=== PATIENT | male | born 1930 | race Caucasian/White ===

== ENCOUNTER 2016-05-02 16:56 | Inpatient (IN) | payer MEDICARE, OTHER ==
[~2016-05-02] VITALS: Ht 172.7 cm; Wt 78.5 kg
[2016-05-02 18:38] LABS: BASOPHILS 0.2 % (0.0-2.0); HEMATOCRIT 25.2 % (42.0-54.0); LYMPHOCYTES 22.6 % (15-50); MCH 22.7 pg (26.0-34.0); MCHC 27.4 g/dL (31.0-37.0); MCV 82.9 fL (80.0-100.0); MEAN PLATELET VOLUME 10.2 fL (7.4-10.4); MONOCYTES 11.9 % (2-11); NEUTROPHILS 62.3 % (40-80); RBC 3.04 10x6/uL (4.20-6.10); RDW 18.4 % (11.5-14.5); WBC 6.3 10x3/uL (4.8-10.8)
[2016-05-02 19:05] LABS: HEMOGLOBIN 6.9 g/dL (13.5-17.5); PLATELET COUNT 174 10x3/uL (130-400)
[2016-05-02 19:19] LABS: ALBUMIN 3.3 g/dL (3.4-5.0); ALKALINE PHOSPHATASE 110 U/L (46-116); ALT (SGPT) 37 U/L (10-68); CALC OSMOLALITY 285 mosm/kg (275-300); CALCIUM 9.8 mg/dL (8.5-10.1); CARBON DIOXIDE 25.3 mmol/L (21.0-32.0); CHLORIDE - SERUM 104 mmol/L (98-107); CREATININE - SERUM 0.9 mg/dL (0.6-1.3); GLUCOSE 92 mg/dL (74-106); POTASSIUM - SERUM 3.8 mmol/L (3.5-5.1); PROTEIN - SERUM 6.5 g/dL (6.4-8.2); SODIUM 142 mmol/L (136-145); UREA NITROGEN 22 mg/dL (7-18); eGFR NON AFRICAN AMERICAN 85 mL/min (90-120)
--- NOTE | 2016-05-02 23:04 | NUR ---
REPORT CALLED FROM ER TO FLOOR.
[2016-05-03] VITALS (7 sets, daily range): BP systolic 114–146; BP diastolic 54–82; Ht 172.7 cm; Wt 78.5 kg
--- NOTE | 2016-05-03 00:28 | NUR ---
PT ADMITTED TO ROOM 2136 FROM ER. ACCOMPANIED BY SON. ALERT/ORIENTED. TRANSFERRED FROM STRETCHER TO BED. ADMISSION ASSESSMENT AND HISTORY COMPLETED. 16 FR SERRANO PLACED WITH YELLOW URINE OUTPUT. 20G IV TO LFA. STARTED 1ST UNIT OF BLOOD AT 0020. SON SIGNED CONSENT. VS BEING MONITORED.
--- NOTE | 2016-05-03 03:05 | NUR ---
1ST UNIT OF BLOOD CONTINUES TO INFUSE. SON AT BEDSIDE.
--- NOTE | 2016-05-03 07:41 | NUR ---
PT IN BED SLEEPING EASY TO ARROUSE SON AT BEDSISDE DENIES NEEDS WILL CONT TO MONITOR.
[2016-05-03 07:49] LABS: HEMATOCRIT 27.9 % (42.0-54.0); LYMPHOCYTES 27.8 % (15-50); MCH 25.3 pg (26.0-34.0); MCHC 30.5 g/dL (31.0-37.0); MEAN PLATELET VOLUME 10.5 fL (7.4-10.4); NEUTROPHILS 52.3 % (40-80); PLATELET COUNT 147 10x3/uL (130-400); RBC 3.36 10x6/uL (4.20-6.10); RDW 16.9 % (11.5-14.5)
[2016-05-03 08:01] LABS: HEMOGLOBIN 8.5 g/dL (13.5-17.5); WBC 4.6 10x3/uL (4.8-10.8)
[2016-05-03] MEDS ORDERED: NEUPRO1 EACH TOPICAL (10:13)
[2016-05-03] MEDS ORDERED: CIPRO500 MG PO (10:14)
[2016-05-03] MEDS ORDERED: SINEMET 25-1001 EACH PO (10:15)
[2016-05-03] MEDS ORDERED: ZOCOR20 MG (10:15)
[2016-05-03] MEDS ORDERED: MYSOLINE250 MG PO (10:16)
[2016-05-03] MEDS ORDERED: NIACIN500 MG PO (10:17)
[2016-05-03] MEDS ORDERED: ELOCON45 GM TOPICAL (10:17)
[2016-05-03] MEDS ORDERED: HYTRIN5 MG PO (10:18)
--- NOTE | 2016-05-03 12:32 | NUR ---
PT HAS BEEN SLEEPING MOST OF THE DAY. SON STILL AT BEDSIDE WILL CONT TO MONITOR.
[2016-05-03 13:57] LABS: APPEARANCE HAZY (CLEAR); BACTERIA FEW /hpf (NONE SEEN); BILIRUBIN NEGATIVE (NEGATIVE); COLOR YELLOW (YELLOW); EPITHELIAL CELLS 0-5 /hpf (0-5); GLUCOSE NEGATIVE (NEGATIVE); KETONE NEGATIVE (NEGATIVE); LEUKOCYTE ESTERASE TRACE (NEGATIVE); NITRITE NEGATIVE (NEGATIVE); PROTEIN 1+ mg/dL (NEGATIVE); RED CELLS - URINE 25-50 /hpf (0-5); SPECIFIC GRAVITY 1.015 (1.005-1.020); UROBILINOGEN NORMAL (NORMAL); WHITE CELLS - URINE 0-5 /hpf (0-5)
[2016-05-03 13:58] LABS: MUCUS <1+ /lpf (NONE SEEN)
--- NOTE | 2016-05-03 14:52 | NUR ---
CALLED PHARM TO GET MYSOLINE IN PYXIS.
[2016-05-03 15:13] LABS: % SATURATION 39 % (15-55); IRON 134 ug/dl (35-150); TOTAL IRON BIND CAPACITY 341 ug/dl (260-445); UNSAT IRON BIND CAPACITY 207 ug/dl (150-375)
--- NOTE | 2016-05-03 18:03 | NUR ---
PT SITTING UP IN BED WATCHING TV DAUGHTER AT BEDSIDE DENIES NEEDS WILL CONT TO MONITOR.
--- NOTE | 2016-05-03 21:20 | NUR ---
CONSENTS SIGNED BY PTS SON FOR EGD IN AM, UP WITH ASSIST TO BR. WILL CONT TO MONITOR.
[2016-05-04 00:52] VITALS: BP 188/53
--- NOTE | 2016-05-04 02:10 | NUR ---
LYING IN BED WITH EYES CLOSED, CALL LIGHT IN REACH. WILL CONTINUE WITH PLAN OF CARE.
[2016-05-04 05:04] VITALS: BP 184/56
[2016-05-04 05:59] LABS: BASOPHILS 0.2 % (0.0-2.0); EOSINOPHILS 7.9 % (0-7); HEMATOCRIT 30.3 % (42.0-54.0); HEMOGLOBIN 8.9 g/dL (13.5-17.5); LYMPHOCYTES 27.7 % (15-50); MCH 24.5 pg (26.0-34.0); MCHC 29.4 g/dL (31.0-37.0); MCV 83.5 fL (80.0-100.0); MEAN PLATELET VOLUME 10.4 fL (7.4-10.4); MONOCYTES 10.8 % (2-11); NEUTROPHILS 53.4 % (40-80); PLATELET COUNT 140 10x3/uL (130-400); RBC 3.63 10x6/uL (4.20-6.10); RDW 17.7 % (11.5-14.5); WBC 4.6 10x3/uL (4.8-10.8)
[2016-05-04 06:42] LABS: ALKALINE PHOSPHATASE 109 U/L (46-116); CALC OSMOLALITY 279 mosm/kg (275-300); CARBON DIOXIDE 27.4 mmol/L (21.0-32.0); CHLORIDE - SERUM 105 mmol/L (98-107); CREATININE - SERUM 0.9 mg/dL (0.6-1.3); GLUCOSE 95 mg/dL (74-106); MAGNESIUM - SERUM 1.8 mg/dL (1.8-2.4); PHOSPHOROUS 2.9 mg/dL (2.5-4.9); POTASSIUM - SERUM 3.8 mmol/L (3.5-5.1); PROTEIN - SERUM 5.9 g/dL (6.4-8.2); SODIUM 140 mmol/L (136-145); THYROID STIMULATING HORMONE 3.61 uIU/mL (0.36-3.74); UREA NITROGEN 15 mg/dL (7-18); eGFR NON AFRICAN AMERICAN 85 mL/min (90-120)
[2016-05-04 06:43] LABS: ALBUMIN 2.4 g/dL (3.4-5.0); ALT (SGPT) 13 U/L (10-68)
--- NOTE | 2016-05-04 07:15 | NUR ---
RESTING QUIETLY WITH EYES CLOSED RESP UNLABORED NAD NOTED
--- NOTE | 2016-05-04 07:30 | NUR ---
ASSESSMENT DONE. PT SLEEPING. EASILY AWAKEN. NO DISTRESS NOTD. DENIES NEEDS. SON AT BEDSIDE. CALL LIGHT WITH IN REACH. WILL CONT. TO MONITOR.
[2016-05-04 08:23] VITALS: BP 140/69
--- NOTE | 2016-05-04 10:33 | NUR ---
PT TO GI LAB BED. PRE OP MEDS GIVEN. EKG DONE. IV FLUSHED AND IS PATENT. PT DENIES PAIN AT SITE. PT'S SON IN ROOM.
--- NOTE | 2016-05-04 11:55 | CN ---
PATIENT NAME:ZACH MCKAY MEDICAL RECORD: [id number] : 32 LOCATION:D. D.2136 ADMIT DATE: 05/02/16 ACCOUNT: [id number] CONSULTING PHYSICIAN: DEEPA SMILEY MD REFERRING PHYSICIAN: REMA GRAY MD DATE OF CONSULTATION: 05/03/2016 Gastroenterology Consultation REFERRING PHYSICIAN: Rema Gray MD HISTORY OF PRESENT ILLNESS: The patient is an 85-year-old white male with history of Parkinson disease who is very hard of hearing, who basically was admitted with fairly significant constipation with no bowel movement over the past 6 days as well as anemia with hematocrit of 25 and an MCV of 83. The patient's only GI complaint is that of chronic constipation and problems with severe hemorrhoidal disease with prolapse. He has no history of melena or hematochezia other than prolapsed hemorrhoids. He apparently had a colonoscopy in [place] a few years back that revealed "a few polyps," they were removed. He was told that he might need a followup exam when he was 88, in 3 more years. He denies any abdominal pain or weight loss. I was asked to see the patient in this regard. PAST MEDICAL HISTORY: As above. He also has hyperlipidemia, tremors, and anxiety as well as coronary artery disease. He has also had multiple myeloma. PAST SURGICAL HISTORY: Status post PTCA. SOCIAL HISTORY: The patient quit smoking many years ago. He is a nondrinker. ALLERGIES: No known drug allergies. HOME MEDICATIONS: Include Neupro, Cipro, Zocor, Sinemet, Mysoline, niacin, Elocon, and Hytrin. He is not on any NSAIDs or blood thinners. PHYSICAL EXAMINATION: GENERAL: Reveals an elderly, very hard of hearing white male in no acute distress. VITAL SIGNS: Stable. He is afebrile. CHEST: Clear. HEART: Regular rate and rhythm. ABDOMEN: Soft and nontender. EXTREMITIES: No edema. LABORATORY DATA: Reveals a white count of 4000, hematocrit 27.9, MCV of 83, platelet count 147,000 with a normal differential. Retic count is normal at 1. Electrolytes normal. BUN 22, creatinine 0.9. Iron saturation 39%, ferritin levels borderline low at 11. Liver enzymes are unremarkable other than an AST of 71, albumin is 3.3. CT of the abdomen and pelvis reveals moderate constipation and a markedly dilated urinary bladder. This has been corrected with a Trent catheter. Acute abdominal series was unremarkable. IMPRESSION: 1. Normocytic anemia with normal borderline iron studies of unclear etiology, but suspectedly, it is partially due to hemorrhoidal bleeding. CONSULT REPORT [id number] ZACH MCKAY 2. Heme-positive stool. Also, probably due to his known large prolapsed internal hemorrhoids. 3. Chronic constipation. This is chronic probably related to his medications for Parkinson disease. 4. Extremely hard of hearing. 5. History of Parkinson disease. 6. Coronary artery disease. RECOMMENDATION: 1. MiraLax 17 g daily. 2. Mineral oil 10 cc daily. 3. Surgical evaluation for hemorrhoidal stapling. 4. EGD in a.m. 5. Depending on all of the above, consider outpatient colonoscopy. 6. Check B12, folate, and haptoglobin level as well as a TSH. TRANSINT:[id number] Voice Confirmation ID: [id number] DOCUMENT ID: [id number] DEEPA SMILEY MD at 1155 CC: REMA GRAY MD [id number] DICTATION DATE: 05/03/161941 CHIEF QUALITY OFFICER: 05/03/162029 ADM IN [facility] [address] [place] [address]
--- NOTE | 2016-05-04 13:34 | NUR ---
REPORT REC'D FROM TIESHA RN IN GI LAB. PT WITH NORMAL EGD. PER TIESHA, DR. SMILEY WOULD LIKE PT TO STAY UNTIL SEEN BY SURGERY D/T ANEMIA, BUT IF PT'S SON INSIST HE BE D/C'D THEN PT CAN GO AND SEE DR. ROSAS AN OUTPATIENT.
--- NOTE | 2016-05-04 14:14 | NUR ---
PT BACK FROM GI LAB. SON AND WAITER/WAITRESS HEAD ASSISTED PT TO RESTROOM. PT DENIES NEEDS AT THIS TIME. AWAITING DR. GRAY SEE PT AND DISCUSS DISCHARGE.
[2016-05-04 14:22] LABS: FOLATE (FOLIC ACID) - SERUM >20.0 ng/mL (>3.0)
[2016-05-04] MEDS ORDERED: MIRALAX17 GM PO (14:25)
[2016-05-04] MEDS ORDERED: MINERAL OIL25 ML PO (14:26)
--- NOTE | 2016-05-04 15:31 | NUR ---
PT TO BE DISCHARGED. AWAITING PAPERWORK. IV REMOVED, AND TELEMETRY REMOVED.
[2016-05-04] MEDS ORDERED: ZOCOR20 MG PO (15:34)
--- NOTE | 2016-05-04 15:46 | NUR ---
Patient Name: ZACH MAKI Admission Status: ER Accout number: [id number] Admission Date: 05-02-2016 : 1932 Admission Diagnosis:ANEMIA, UNSPECIFIED Attending: ISAAK Current LOS: 2 Anticipated DC Date: 05-05-2016 Planned Disposition: Primary Insurance: MEDICARE A & B Discharge Planning Comments: CM met with patient's son as patient is currently in GI Lab for EGD. Patient's son "Blayne Maki" ([phone]) states the patient and his spouse reside with him in his home. He lives in a single story home with 5 steps leading to the front door. He states he has placed guardrails and grab bars throughout the home for safety. Son states the patient has a walker but no other DME equipment. He has a shower with a built in seat. He states the patient is never left alone and when ambulating "always has at least one person to assist". No services were in use at time of this admission. The son states the home environment is safe for the patient to return to. The patient's son will be his transportation home when discharged and is currently at the bedside. CM to follow and assist as needed. Property Analyst: Yeny Forman RN/CM * How many steps to enter\\exit or inside your home? 5 0 * PCP Alexis 0 * Pharmacy [facility] ([place]) 0 * Preadmission Environment Home with Family 0 * ADLs Partial Dependent 0 * Partial ADLs (Assistance needed) Ambulation Bathing Dressing Medication Management Transfers 0 * Equipment Shower Chair Walker 0 * Other Equipment PATIENT'S SON STATES HE HAS INSTALLED GRAB BARS THROUGHOUT HIS HOME AND STATES HIS FATHER DOES NOT AMBULATE ALONE WITHOUT HIS WALKER AND ASSISTANCE BY AT LEAST 1 PERSON. 0 * List name and contact numbers for known caregivers / representatives who currently or will assist patient after discharge: Blayne Maki (son) [phone] or [phone] 0 * Community resources currently utilized None 0 * Additional services required to return to the preadmission environment? No 0 * Can the patient safely return to the preadmission environment? Yes 0 * Has this patient been hospitalized within the prior 30 days at any hospital? No 0
[2016-05-04 15:58] VITALS: BP 134/68
--- NOTE | 2016-05-04 16:04 | NUR ---
PT'S SERRANO REMOVED. PT ABLE TO VOID APPROX 120ML OF DARK YELLOW URINE. DISCHARGE INSTRUCTIONS GIVEN TO PT AND SON. SON VERBALIZED UNDERSTANDING. PT TO D/C HOME WITH [facility] CALLS FOLLOWING UP. TO D/C HOME VIA PRIVATE VEHICLE.
--- NOTE | 2016-05-04 16:21 | NUR ---
PT D/C HOME VIA PRIVATE VEHICLE.
--- NOTE | 2016-05-07 18:09 | PRO ---
PATIENT:ZACH MCKAY MEDICAL RECORD: [id number] : 32 LOCATION:D.M2 D.2136 ADMISSION DATE: 05/02/16 PROCEDURE PERFORMED BY: DEEPA BELLO MD DATE OF PROCEDURE: 05/04/2016 MEDICAL EQUIPMENT TECHNICIAN: Deepa Belol MD. PROCEDURE: EGD. INDICATION: The patient is an 85-year-old white male with Parkinson disease as well as he is very hard of hearing, who is basically admitted with significant anemia with normocytic indices and borderline iron studies of unclear etiology. His only GI complaint is as of chronic problems with internal hemorrhoids with persisted prolapse. He apparently had a colonoscopy in [place] a few years ago that revealed "a few polyps" and he was told not to have another one until 2019. He was heme positive on admission, his hematocrit was 25. He also has chronic constipation. I started him on MiraLax, mineral oil daily. He is now for EGD. His iron saturation is 30%. His ferritin level was borderline low at 12. B12, folate, haptoglobin are pending. TSH is normal. He is now for EGD. PREMEDICATION: Taper anesthesia. INSTRUMENT: Olympus video gastroscope. FINDINGS: The endoscope was passed through the oropharynx to the second portion of the duodenum without difficulty. The esophagus, stomach, and duodenum were all normal. There was no stigmata of recent bleeding. The patient tolerated the procedure well without any complication. IMPRESSION: 1. Normal esophagogastroduodenoscopy. 2. Anemia, still of unclear etiology, though I suspect most of it is due to his internal hemorrhoids with prolapse. RECOMMENDATIONS: 1. MiraLax 17 grams daily. 2. Mineral oil 10 cc daily. 3. Surgical evaluation for possible hemorrhoidal stapling. 4. Follow hematocrit. 5. Depending on all of the above, consider outpatient colonoscopy. Again, he apparently had a colonoscopy a few years ago in [place], but that was normal other than having "a few polyps" that removed. He was told to have a followup exam in 2019. TRANSINT:[id number] Voice Confirmation ID: [id number] DOCUMENT ID: [id number] PROCEDURE NOTE [id number] NELYDEEPA MEAD MD at 1805 CC: JARED QUEEN M.D. [id number] DICTATION DATE: 05/04/16 1238 AIRFRAME AND POWERPLANT TECHNICIAN: 05/05/16 0243 DIS IN 05/04/16 [facility] [address] [id number]
== END 2016-05-04 16:20 | disposition home or self-care (01) | DRG 812 ==
LOC: D.ER 16:56 → D.M2 22:21
PROVIDERS: Family Medicine; Internal Medicine Gastroenterology; Nurse Practitioner Acute Care; ADMIT Family Medicine
PROC: 0DJ08ZZ Inspection of Upper Intestinal Tract, Via Natural or Artificial Opening Endoscopic (ICD-10-PCS; principal; 2016-05-04 11:15)
DX: D64.9 Anemia, unspecified (principal); K64.8 Other hemorrhoids; K59.09 Other constipation; G20 Parkinson's disease; I25.10 Atherosclerotic heart disease of native coronary artery without angina pectoris; Z86.010 Personal history of colon polyps

== ENCOUNTER 2016-05-09 02:41 | Inpatient (IN) | payer MEDICARE, OTHER ==
[~2016-05-09] VITALS: Ht 172.7 cm; Wt 68.6 kg
[~2016-05-09 02:41] MED LIST: CIPRO500 MG PO; ELOCON45 GM TOPICAL; HYTRIN5 MG PO; MINERAL OIL25 ML PO; MIRALAX17 GM PO; MYSOLINE250 MG PO; NEUPRO1 EACH TOPICAL; NIACIN500 MG PO; SINEMET 25-1001 EACH PO; ZOCOR20 MG; ZOCOR20 MG PO
[2016-05-09 03:38] LABS: BASOPHILS 0.1 % (0.0-2.0); EOSINOPHILS 0.2 % (0-7); HEMATOCRIT 30.8 % (42.0-54.0); HEMOGLOBIN 8.9 g/dL (13.5-17.5); IMMATURE GRANULOCYTES 0.3 % (0-5); LYMPHOCYTES 7.9 % (15-50); MCHC 28.9 g/dL (31.0-37.0); MCV 86.5 fL (80.0-100.0); MEAN PLATELET VOLUME 9.9 fL (7.4-10.4); MONOCYTES 8.6 % (2-11); NEUTROPHILS 82.9 % (40-80); PLATELET COUNT 161 10x3/uL (130-400); RBC 3.56 10x6/uL (4.20-6.10); RDW 20.1 % (11.5-14.5); WBC 13.3 10x3/uL (4.8-10.8)
[2016-05-09 03:47] LABS: APPEARANCE HAZY (CLEAR); BACTERIA MANY /hpf (NONE SEEN); BILIRUBIN NEGATIVE (NEGATIVE); COLOR DK YELLOW (YELLOW); EPITHELIAL CELLS 0-5 /hpf (0-5); GLUCOSE NEGATIVE (NEGATIVE); KETONE SMALL mg/dL (NEGATIVE); LEUKOCYTE ESTERASE 1+ (NEGATIVE); MUCUS <1+ /lpf (NONE SEEN); NITRITE POSITIVE (NEGATIVE); PROTEIN NEGATIVE (NEGATIVE); RED CELLS - URINE RARE /hpf (0-5); SPECIFIC GRAVITY 1.015 (1.005-1.020); UROBILINOGEN NORMAL (NORMAL)
[2016-05-09 03:51] LABS: ALBUMIN 2.9 g/dL (3.4-5.0); ALKALINE PHOSPHATASE 109 U/L (46-116); ALT (SGPT) 12 U/L (10-68); BILIRUBIN - TOTAL 0.28 mg/dL (0.2-1.3); CALC OSMOLALITY 278 mosm/kg (275-300); CALCIUM 9.5 mg/dL (8.5-10.1); CARBON DIOXIDE 28.4 mmol/L (21.0-32.0); CHLORIDE - SERUM 102 mmol/L (98-107); CREATININE - SERUM 1.1 mg/dL (0.6-1.3); GLUCOSE 111 mg/dL (74-106); POTASSIUM - SERUM 4.6 mmol/L (3.5-5.1); PROTEIN - SERUM 6.9 g/dL (6.4-8.2); SODIUM 138 mmol/L (136-145); UREA NITROGEN 18 mg/dL (7-18); eGFR NON AFRICAN AMERICAN 68 mL/min (90-120)
[2016-05-09 03:59] LABS: CREATINE KINASE 65 UL (21-232); LIPASE 83 U/L (73-393); PRO BNP 227 pg/mL (0-450)
[2016-05-09 04:26] LABS: TROPONIN-I < 0.017 ng/mL (0.000-0.060)
[2016-05-09 06:31] VITALS: BP 115/54; BMI 23.7
--- NOTE | 2016-05-09 07:18 | NUR ---
PT ARRIVED TO UNIT FROM ER BY WHEELCHAIR SON AT SIDE RIGHT FOREARM SALINE LOCKED IVP INTACT. PT HAS TREMORS AND WHEN ASKED SON STATED THAT " HE HAS PARKENSONS" SON ASSISTING PT WITH USING URINAL AND PT IS UP WITH ASSIST RESPERATIONS EVEN AND UNLABORED ON 2LNC AT THIS TIME WILL MONITOR
--- NOTE | 2016-05-09 07:32 | NUR ---
AM ROUNDING- PT LAYING IN BED ON LEFT SIDE WITH EYES CLOSED RESTING. ON 2L OF VIA NC. IV SEEN TO RIGHT FOREARM THAT IS CURRENTLY SALINE LOCKED AND PATENT. PER REPORT FROM CAMPUS MONITOR NURSE JEROMY, PT USES URINAL AT BEDSIDE AND GETS UP WITH ASSIST. PER REPORT PT HAS HX OF PARKINSONS DISEASE. WILL PUT HEART MONITOR ON PT AND SCDS ORDERED AND CONTINUE TO MONITOR.
[2016-05-09 07:50] VITALS: BP 114/53
[2016-05-09 10:19] VITALS: Ht 172.7 cm; Wt 68.6 kg
[2016-05-09 11:59] VITALS: BP 133/62
--- NOTE | 2016-05-09 13:17 | NUR ---
JACQUELYN MÉNDEZ RN INSTERED SERRANO CATHETER ORDERED WITH 16F SERRANO CATHETER. 10CC OF SALINE INSERTED INTO BALLOON. TOLERATED WELL. URINE IS DARK/CONCENTRATED. WILL CONTINUE TO MONITOR.
[2016-05-09 16:44] VITALS: BP 138/57
--- NOTE | 2016-05-09 19:33 | NUR ---
RECEIVED REPORT, AUTUMN GILES, 02-2L, FAMILY AT BEDSIDE, CALL LIGHT IN REACH, BED IS LOW, [id number], WILL CONTINUE TO MONITOR
[2016-05-09 20:20] VITALS: BP 154/59
[2016-05-10] VITALS (7 sets, daily range): BP systolic 106–134; BP diastolic 43–73
--- NOTE | 2016-05-10 05:11 | NUR ---
PT RESTING, INFUSING ANTIBONICS, FAMILY AT BEDSIDE, CALL LIGHT IN REACH
[2016-05-10 05:26] LABS: BASOPHILS 0 % (0.0-2.0); EOSINOPHILS 0.1 % (0-7); HEMATOCRIT 29.5 % (42.0-54.0); HEMOGLOBIN 8.5 g/dL (13.5-17.5); IMMATURE GRANULOCYTES 0.3 % (0-5); LYMPHOCYTES 8.3 % (15-50); MCH 24.9 pg (26.0-34.0); MCHC 28.8 g/dL (31.0-37.0); MCV 86.3 fL (80.0-100.0); MEAN PLATELET VOLUME 10.5 fL (7.4-10.4); MONOCYTES 9.1 % (2-11); NEUTROPHILS 82.2 % (40-80); PLATELET COUNT 162 10x3/uL (130-400); RBC 3.42 10x6/uL (4.20-6.10); RDW 20.5 % (11.5-14.5); WBC 11.2 10x3/uL (4.8-10.8)
[2016-05-10 05:33] LABS: CALC OSMOLALITY 270 mosm/kg (275-300); CALCIUM 9.1 mg/dL (8.5-10.1); CARBON DIOXIDE 25.6 mmol/L (21.0-32.0); CHLORIDE - SERUM 102 mmol/L (98-107); GLUCOSE 90 mg/dL (74-106); POTASSIUM - SERUM 4.1 mmol/L (3.5-5.1); SODIUM 135 mmol/L (136-145); UREA NITROGEN 15 mg/dL (7-18); eGFR NON AFRICAN AMERICAN 76 mL/min (90-120)
--- NOTE | 2016-05-10 07:21 | NUR ---
PT SITTING UP IN BED WITH DAUGHTER AT BEDSIDE DENIES NEEDS WILL CONT TO MONITOR.
--- NOTE | 2016-05-10 13:59 | EC ---
PATIENT:ZACH MCKAY DATE OF SERVICE: 05/09/16 SEX: M MEDICAL RECORD: [id number] DATE OF : 32 LOCATION:D.M2 D.210 AGE OF PATIENT: 85 ADMISSION DATE: 05/09/16 REFERRING PHYSICIAN: INTERPRETING PHYSICIAN: ARGENTINA OSCAR MD ECHOCARDIOGRAM REPORT ECHO CHARGES 4 ECHO COMPLETE CLINICAL DIAGNOSIS: DYSPNEA ECHOCARDIOGRAPHIC MEASUREMENTS (adult normal given) AC root (d.<3.7cm) 4.1 LV Septum d (<1.2 cm> 1.3 Valve Excursion 2.0 LV Septum (systole) 1.4 Left Atria (s.<4.0cm> 3.5 LVPW d(<1.2cm) 1.2 RV (d.<2.3cm) 5.0 LVPW (sytole) 1.6 LV diastole(<5.6CM) 5.1 MV E-F(>70mm/sec) LV systole 3.8 LVOT Diameter 1.9 MV exc.(>10mm) 2.0 Est.ejection fraction (50-75%) Pericardial Effusion N DOPPLER: LVIT A 72.0 E 102 LA RVSP 40 LVOT 119 AOP1/2T Asc. Ao 147 RVOT 91 RA PA 142 AV Gradient Peak 8.7 AV Mean 3.9 AV Area 2.4 MV Gradient Peak 4.67 MV Mean 1.68 MV Area COMMENTS: Bruise Trimmer: Miko WILL Sas Developer Analyst:Miko Orlando TAPE# PACS DATE OF SERVICE: 05/10/2016 Echocardiogram FINDINGS: 1. Left ventricular chamber size is within normal limits. Left ventricular systolic function is normal. Overall ejection fraction estimated at 55%. 2. Left atrium, right atrium, and right ventricular chamber sizes are within normal limits. 3. Valvular structures have normal structure and motion. ECHOCARDIOGRAM REPORT [id number] ZACH MCKAY 4. Doppler interrogation only reveals mild mitral regurgitation, [id number] tricuspid regurgitation, no other valvular insufficiency or stenosis. Pulmonary systolic pressure is mildly elevated estimated at 40 mmHg. 5. No evidence of pericardial effusion or left ventricular thrombus. TRANSINT:[id number] Voice Confirmation ID: [id number] DOCUMENT ID: [id number] ARGENTINA OSCAR MD at 3500 CC: [id number] DICTATION DATE: 05/10/16 1245 CHANNEL MARKETING COORDINATOR: 05/10/16 1308 ADM IN [facility] [address] [id number]
--- NOTE | 2016-05-10 15:43 | NUR ---
Patient Name: ZACH MCKAY Admission Status: ER Accout number: [id number] Admission Date: 05-09-2016 : 1932 Admission Diagnosis:PNEUMONIA, UNSPECIFIED ORGANISM Attending: JOSY Current LOS: 1 Anticipated DC Date: Planned Disposition: Home Primary Insurance: MEDICARE A & B Discharge Planning Comments: * Is the patient Alert and Oriented? Yes 0 * How many steps to enter\exit or inside your home? 6 0 * PCP DR. QUEEN 0 * Pharmacy [facility] [address] [facility] 0 * Preadmission Environment Home with Family 0 * ADLs Partial Dependent 0 * Partial ADLs (Assistance needed) Bathing Medication Management Transfers 0 * Equipment Walker 0 * Other Equipment NO MEDICAL EQUIPMENT PROVIDER PREFERENCE 0 * List name and contact numbers for known caregivers / representatives who currently or will assist patient after discharge: TRINI MCKAY, SON, [place] [phone] 0 * Community resources currently utilized None 0 * Please name any agencies selected above. NONE 0 * Additional services required to return to the preadmission environment? No 0 * Can the patient safely return to the preadmission environment? Yes 0 * Has this patient been hospitalized within the prior 30 days at any hospital? Yes 0 CM MET WITH PT AND DAUGHTER IN ROOM TO DISCUSS DISCHARGE PLANNING AND NEEDS. PT IS EXTREMELY HARD OF HEARING AND WAS VERY SLOW TO RESPOND TO QUESTIONS, INDICATED TO CM TO SPEAK TO HIS DAUGHTER REGARDING QUESTIONS. PT'S DAUGHTER, MICHELET, REPORTS PT LIVING AT HOME DEPENDENT UPON PT'S SON WHO LIVES WITH PT. THEY ASSIST PT WITH TRANSFERS, AMBULATION, BATH AND MEDICATION. PT HAS A WALKER WITH NO MEDICAL EQUIPMENT PROVIDER PREFERENCE. PT HAS NO OUTSIDE SERVICES ASSISTING IN THE HOME. CM DISCUSSED AVAILABILITY OF HOME HEALTH, REHAB SERVICES AND MEDICAL EQUIPMENT. PT'S DAUGHTER DOES NOT THINK THEY WILL NEED ANYTHING BUT WILL LET CM KNOW IF THEY DO. CM LEFT CM CONTACT INFORMATION FOR FAMILY. DAUGHTER REPORTS HER BROTHER WILL PICK PT UP FOR DISCHARGE HOME. FAMILY PLANS TO TAKE PT HOME AT DISCHARGE. NO KNOWN DISCHARGE NEEDS AT THIS TIME, CM TO FOLLOW AND ASSIST IF NEEDED. Engineering Patternmaker: Laurent Henderson
--- NOTE | 2016-05-10 16:59 | NUR ---
PT PULLED PIV OUT BY ACCIDENT, PT FAMILY MEMBER THINKS LINE GOT CAUGHT ON BED RAIL. CATHETER TIP INTACT. PT SITTING UP EATING DINNER WILL RESITE WHEN HE IS FINISHED.
--- NOTE | 2016-05-10 18:23 | NUR ---
RESITED PT TO LEFT FA 22G X1 STICK.
--- NOTE | 2016-05-10 23:00 | NUR ---
PT ASSESSMENT COMPLETED NO DITRESS OBSERVED PT C/O SERRANO AND A " FEELING LIKE I NEED TO PEE" FLOEY DRAINING TO GRAVITY NO BLOCKAGE NOTED OR OBSERVED RESPERATIONS EVEN AND UNLABORED ON 2LNC BED LOW AND LOCKED SRX2 CALL LIGHT IN REACH WILL MONITOR
[2016-05-11 01:44] VITALS: BP 139/57
[2016-05-11 04:44] LABS: BASOPHILS 0.1 % (0.0-2.0); EOSINOPHILS 0.4 % (0-7); HEMATOCRIT 28.5 % (42.0-54.0); HEMOGLOBIN 8.4 g/dL (13.5-17.5); IMMATURE GRANULOCYTES 0.2 % (0-5); LYMPHOCYTES 8.8 % (15-50); MCH 25.2 pg (26.0-34.0); MCHC 29.5 g/dL (31.0-37.0); MCV 85.6 fL (80.0-100.0); NEUTROPHILS 81.5 % (40-80); PLATELET COUNT 158 10x3/uL (130-400); RBC 3.33 10x6/uL (4.20-6.10); RDW 20.2 % (11.5-14.5); WBC 11.1 10x3/uL (4.8-10.8)
[2016-05-11 05:22] LABS: CALC OSMOLALITY 266 mosm/kg (275-300); CARBON DIOXIDE 26.2 mmol/L (21.0-32.0); CHLORIDE - SERUM 101 mmol/L (98-107); CREATININE - SERUM 0.9 mg/dL (0.6-1.3); GLUCOSE 101 mg/dL (74-106); MAGNESIUM - SERUM 1.7 mg/dL (1.8-2.4); POTASSIUM - SERUM 4.4 mmol/L (3.5-5.1); SODIUM 133 mmol/L (136-145); UREA NITROGEN 14 mg/dL (7-18); eGFR NON AFRICAN AMERICAN 85 mL/min (90-120)
--- NOTE | 2016-05-11 07:11 | NUR ---
PT SITTING UP IN BED WITH SON AT BEDSIDE BOTH DENY NEEDS WILL CONT TO MONITOR.
[2016-05-11 08:00] VITALS: BP 114/52
[2016-05-11 12:00] VITALS: BP 122/50
--- NOTE | 2016-05-11 12:40 | CN ---
PATIENT NAME:ZACH MAKI MEDICAL RECORD: [id number] : 32 LOCATION:D.M2 D.2104 ADMIT DATE: 05/09/16 ACCOUNT: [id number] CONSULTING PHYSICIAN: RANDY DIKCSON MD REFERRING PHYSICIAN: JENNI OBRIEN MD DATE OF CONSULTATION: 05/09/2016 CONSULT REQUESTING PHYSICIAN: Jenni Obrien MD. REASON FOR CONSULTATION: Questionable pneumonia, acute hypoxic respiratory failure. HISTORY OF PRESENT ILLNESS: Mr. Maki is an 85-year-old gentleman who has a history of Parkinson disease and very hard of hearing. The history was taken by the help his son. The patient was recently hospitalized for anemia. He was transfused with 2 units of blood, discharged home and then for the last 3-4 days he was progressive shortness of breath and swelling of the lower extremity. He came back to the ER, in evaluation found out that the patient has significant leukocytosis, but the chest x-ray there were no infiltrate. REVIEW OF SYSTEMS: Mainly in the history of present illness. PAST MEDICAL HISTORY: 1. Parkinson disease. 2. History of pneumonia. 3. Recent anemia. 4. History of multiple myeloma. PAST SURGICAL HISTORY: He is status post EGD. ALLERGIES: There are no known drug allergies. PRESENT MEDICATIONS: On Global Education Learning was reviewed. PERSONAL AND SOCIAL HISTORY: The patient was smoking and nondrinker. FAMILY HISTORY: Noncontributory. PHYSICAL EXAMINATION: GENERAL: Now, the patient is lying comfortably. He is not in acute distress. VITAL SIGNS: The blood pressure 133/62, pulse is 75, respiration is 98.4, SpO2 is 95% on 2 liters nasal cannula. HEENT: Conjunctiva is pale. Sclerae nonicteric. NECK: Supple, no JVD. CHEST: Excursion is minimal on both sides. There is no wheeze, no rales. HEART: Rhythm regular, normal sound, no murmur. ABDOMEN: Soft, bowel sounds present. No hepatosplenomegaly. RECTAL: Deferred. EXTREMITIES: No cyanosis, no clubbing. There are 2+ pedal edema. SKIN: Warm, normal turgor. CENTRAL NERVOUS SYSTEM: There is no obvious cranial nerve abnormality. The patient has increased muscle tone. The gait was not tested. CHEST RADIOGRAPH: There is no acute infiltrate. CONSULT REPORT [id number] ZACH MAKI OTHER LABORATORY DATA: CBC: WBC is 13.3, hemoglobin 8.9, hematocrit 30.8. The platelet count 161. Chemistry: Sodium 138, potassium is 4.6, BUN is 18, creatinine 1.1, glucose 111. IMPRESSION: 1. Acute hypoxic respiratory failure. The etiology is not clear, rule out occult pneumonia, possible aspiration, rule out pulmonary embolism. 2. Leukocytosis. 3. Urinary tract infection. 4. Anemia. 5. Parkinson disease. RECOMMENDATION: 1. We will continue the present antibiotic, cefepime and Levaquin adjust the dosage. I will check the CTA of the chest to rule out PE, rule out pneumonia. 2. The speech pathologist evaluation is in progress. Dr. Obrien, once again thanks for involving me in the care of Mr. Maki. TRANSINT:[id number] Voice Confirmation ID: [id number] DOCUMENT ID: [id number] RANDY DICKSON MD at 1240 CC: JENNI OBRIEN MD [id number] DICTATION DATE: 05/09/16 1514 ALUMNI COORDINATOR: 05/09/16 1602 ADM IN [facility] [address] [id number]
--- NOTE | 2016-05-11 13:12 | NUR ---
PT HAD A LARGE INC BM AFTER LUNCH. CLEANED UP PT. PT DENIES OTHER NEEDS AT THIS TIME WILL CONT TO MONITOR
--- NOTE | 2016-05-11 14:02 | NUR ---
PT TEMP 100.0. GIVEN TYLENOL
--- NOTE | 2016-05-11 14:09 | NUR ---
NUTRITION MONITORING & EVAL CHART REVIEWED, PT VISIT. SLEEPING, FAMILY AT BEDSIDE. NOT DRINKING MUCH ENSURE. FAMILY REPORTS PT WITH POOR PO INTAKE BREAKFAST AND LUNCH MOST DAYS. PT DOES CONSUME ~100% EVENING MEALS. WILL CONTINUE TO PROVIDE AHA DIET, HONEY THICK LIQUIDS. RD FOLLOWING
[2016-05-11 16:00] VITALS: BP 104/53
--- NOTE | 2016-05-11 18:29 | NUR ---
PT SITTING UP IN BED SLEEPING NO S/S DISTRESS NOTED WILL CONT TO MONITOR.
[2016-05-11 20:24] VITALS: BP 140/61
--- NOTE | 2016-05-11 21:31 | NUR ---
RESTING IN BED. ALERT FOLLOWS WITH EYES. DID NOT RESPOND VERBALLY WHEN QUESTIONED. ATTEMPTED TO SHAKE HEAD YES AND NO WHEN ABLE AND APPROPRIATE. DAUGHTER AT BEDSIDE
[2016-05-12 01:07] VITALS: BP 171/71
[2016-05-12 05:01] VITALS: BP 149/64
[2016-05-12 05:33] LABS: BASOPHILS 0.1 % (0.0-2.0); EOSINOPHILS 1.7 % (0-7); HEMATOCRIT 29.1 % (42.0-54.0); HEMOGLOBIN 8.6 g/dL (13.5-17.5); IMMATURE GRANULOCYTES 0.3 % (0-5); LYMPHOCYTES 9.4 % (15-50); MCH 24.9 pg (26.0-34.0); MCHC 29.6 g/dL (31.0-37.0); MCV 84.1 fL (80.0-100.0); MEAN PLATELET VOLUME 10.5 fL (7.4-10.4); MONOCYTES 9.2 % (2-11); NEUTROPHILS 79.3 % (40-80); RBC 3.46 10x6/uL (4.20-6.10); RDW 20.1 % (11.5-14.5); WBC 10.8 10x3/uL (4.8-10.8)
[2016-05-12 05:37] LABS: PLATELET COUNT 202 10x3/uL (130-400)
[2016-05-12 05:55] LABS: CALC OSMOLALITY 263 mosm/kg (275-300); CALCIUM 8.9 mg/dL (8.5-10.1); CARBON DIOXIDE 24.3 mmol/L (21.0-32.0); CHLORIDE - SERUM 100 mmol/L (98-107); CREATININE - SERUM 0.7 mg/dL (0.6-1.3); GLUCOSE 91 mg/dL (74-106); MAGNESIUM - SERUM 1.7 mg/dL (1.8-2.4); PHOSPHOROUS 2.4 mg/dL (2.5-4.9); POTASSIUM - SERUM 4.1 mmol/L (3.5-5.1); SODIUM 132 mmol/L (136-145); UREA NITROGEN 11 mg/dL (7-18); eGFR NON AFRICAN AMERICAN > 90 mL/min (90-120)
[2016-05-12 07:00] VITALS: BP 136/59
--- NOTE | 2016-05-12 07:21 | NUR ---
AM ROUNDING- PT LAYING IN BED ON BACK WITH EYES OPEN RESTING. SON AT BEDSIDE. SERRANO CATHETER SEEN WITH NO URINE IN IT CURRENTLY. IV SEEN TO LEFT FOREARM WITH NS RUNNING AT KVO (10CC). ON ROOM AIR. ON MONITOR SHOWING SR, HR 79. SCDS ARE ON. PER REPORT PT HAS HX OF PARKINSONS DISEASE. WALKER AT BEDSIDE. BEDSIDE COMMODE AT BEDSIDE. NO NEED AT CURRENT TIME. WILL CONTINUE TO MONITOR.
--- NOTE | 2016-05-12 09:00 | NUR ---
0806-CALLED TO CHECK ON PATIENT FROM PIN BALL MACHINE MECHANIC. PATIENT WAS IN SR THIS AM AND NOW UCAF, HR 133. B/P 128/666 RT [facility], O2 SAT 95 % RA, RESP 20. DENIES ANY CHEST PAIN OR DISCOMFORT. JOHNSON QUIROZ APN PAGED. AWAITING CALL BACK.
--- NOTE | 2016-05-12 09:25 | NUR ---
CHECK WHAT PT WAS DOING ON THE MONITOR. PT IS GOING BACK AND FORTH BETWEEN SINUS RHYTHM AND UNCONTROLLED A-FIB. PT DENIES ANY CHEST PAIN AT THIS TIME. STILL AWAITING CALLBACK FROM JOHNSON QUIROZ NP. WILL CONTINUE TO MONITOR. DAUGHTER IS AT BEDSIDE AND STATED SHE WILL NOTIFY ME IF PT HAS ANY ABNORMAL SYMPTOMS.
--- NOTE | 2016-05-12 11:52 | NUR ---
1115- DR. OBRIEN ON UNIT. NOTIFIED HER OF PTS HEART RHYTHM GOING FROM SINUS RHYTHM TO UNCONTROLLED A-FIB AT TIMES. NO NEW ORDERS RECEIVED.
[2016-05-12 12:00] VITALS: BP 113/47
[2016-05-12 16:00] VITALS: BP 125/64
--- NOTE | 2016-05-12 18:01 | NUR ---
PT LAYING IN BED ON BACK WITH EYES CLOSED RESTING. DAUGHTER IS AT BEDSIDE. NO NEED AT CURRENT TIME. SERRANO CATHETER EMPTIED WITH 1200CC OF SLIGHTLY DARK URINE SEEN. WILL CONTINUE TO MONITOR.
[2016-05-12 20:15] VITALS: BP 121/54
--- NOTE | 2016-05-12 22:05 | NUR ---
RESTING IN BED. EYES CLOSED RESPIRATIONS OBSERVED. EVEN AND UNLABORED. FAMILY AT BEDSIDE
[2016-05-13 00:09] VITALS: BP 122/60
[2016-05-13 04:12] VITALS: BP 130/64
--- NOTE | 2016-05-13 05:00 | NUR ---
PT HAS RESTED WITH NO DISTRESS. HAT FORMER PROVIDING AM CARE ASSISTANCE.
[2016-05-13 05:03] LABS: BASOPHILS 0.2 % (0.0-2.0); EOSINOPHILS 7.6 % (0-7); HEMATOCRIT 30.8 % (42.0-54.0); IMMATURE GRANULOCYTES 0.3 % (0-5); LYMPHOCYTES 15.8 % (15-50); MCH 24.7 pg (26.0-34.0); MCHC 29.2 g/dL (31.0-37.0); MCV 84.4 fL (80.0-100.0); MEAN PLATELET VOLUME 10.5 fL (7.4-10.4); MONOCYTES 10.3 % (2-11); NEUTROPHILS 65.8 % (40-80); RBC 3.65 10x6/uL (4.20-6.10); RDW 20.1 % (11.5-14.5)
[2016-05-13 05:08] LABS: PLATELET COUNT 243 10x3/uL (130-400); WBC 6.6 10x3/uL (4.8-10.8)
[2016-05-13 05:21] LABS: CALC OSMOLALITY 277 mosm/kg (275-300); CALCIUM 9.3 mg/dL (8.5-10.1); CARBON DIOXIDE 26.1 mmol/L (21.0-32.0); CHLORIDE - SERUM 104 mmol/L (98-107); CREATININE - SERUM 0.7 mg/dL (0.6-1.3); GLUCOSE 96 mg/dL (74-106); POTASSIUM - SERUM 4.1 mmol/L (3.5-5.1); SODIUM 139 mmol/L (136-145); UREA NITROGEN 12 mg/dL (7-18); eGFR NON AFRICAN AMERICAN > 90 mL/min (90-120)
--- NOTE | 2016-05-13 07:04 | NUR ---
AM ROUNDING- PT LAYING IN BED ON LEFT SIDE WITH EYES CLOSED RESTING. ON MONITOR SHOWING SR, HR 70. PT HAS SERRANO CATHETER WITH YELLOW URINE SEEN. ON ROOM AIR. IV SEEN TO LEFT FOREARM THAT CURRENTLY HAS ANTIBIOTICS RUNNING. SCDS ARE ON. BED ALARM IS ON. PT HAS HX OF PARKINSONS DISEASE PER REPORT. NO NEED AT CURRENT TIME. WILL CONTINUE TO MONITOR.
[2016-05-13 09:00] VITALS: BP 138/64
--- NOTE | 2016-05-13 10:54 | NUR ---
1037- DR. OBRIEN ON UNIT. NOTIFIED HER OF PT NOT GETTING STARTED ON HOME MEDICATION D/T TO REALIZING PT HAD NOT BEEN TAKING PARKINSONS MEDICATION AND FAMILY WAS WONDERING ABOUT IT WELL BUT WASN'T SURE IF PT WAS TAKING HOME MEDICATIONS. I LOOKED AND HOME MEDICATION LIST HAD BEEN UPDATED ON ADMISSION BUT DID NOT SEE MEDICAIONS ON PTS MAR. I WAS CONCERNED ABOUT PT SHAKING ALOT ( PT HAS HX OF PARKINSONS DISEASE). DR. OBRIEN STATED SHE WOULD LOOK INTO IT. AWAITING NEW ORDERS.
[2016-05-13 12:00] VITALS: BP 136/68
--- NOTE | 2016-05-13 12:39 | NUR ---
PTS HOME MEDICATIONS ARE AT BEDSIDE TABLE. INFORMED PTS DAUGHTER THAT WE WOULD HAVE TO SEND THEM DOWN TO PHARMACY AND HAVE THEM KEPT DOWN THERE OR PTS DAUGHTER COULD TAKE THEM HOME. PT DAUGHTER STATED SHE WOULD TAKE THEM HOME. WILL CONTINUE TO MONITOR.
[2016-05-13] MEDS ORDERED: VIBRAMYCIN 100100 MG PO (13:41)
--- NOTE | 2016-05-13 14:59 | NUR ---
PER J CARLOS RN REQUEST, PAGED DR. DICKSON TO INFORM HIM THAT PT IS TO D/C HOME TODAY. PAGED DR. DICKSON TO ALSO ASK HIM IF HE WANTED TO DO A FOLLOW UP APPOINTMENT WITH ANY TESTING. AWAITING CALLBACK.
[2016-05-13 16:00] VITALS: BP 125/68
--- NOTE | 2016-05-13 17:00 | NUR ---
PTS SON IS IN ROOM UPSET BECAUSE HE STATED HE DOES NOT KNOW WHY PTS HOME MEDICATIONS JUST GOT STARTED BACK TODAY. I TOLD PTS SON THAT I AM VERY SORRY. I LET CHARGE NURSE DAVID KNOW AND NOTIFIED RUBIO BUSBYCUPOLA WORKER. I GAVE PTS SON SHAMIKA CRISTOBAL RN (UNIT MANGER) PHONE NUMBER.
--- NOTE | 2016-05-13 17:03 | NUR ---
PTS D/C PAPERWORK EXPLAINED TO PT AND PTS SON AND DAUGHTER. D/C PAPERWORK SIGNED BY PTS SON. IV TO LEFT FOREARM REMOVED WITH CATH TIP INTACT, COVERED WITH 2X2 GAUZE AND SECURED WITH TAPE. SERRANO CATHETER REMOVED WITH 10CC PULLED OUT OF BALLOON. TOLERATED WELL. AWAITING PTS SON AND DAUGHTER TO GET PTS BELONGINGS TOGETHER AND WILL CONTINUE TO D/C.
--- NOTE | 2016-05-13 17:24 | NUR ---
LIBIA WENT TO SPEAK WITH THE PATIENT AT THE BEDSIDE. HIS SON, TRINI , WAS ASSISTING HIM TO GET DRESSED FOR DISCHARGE TO HOME. THE SON DENIED ANY ADDITIONAL NEEDS FOR DISCHARGE. PATIENT HAS HOUSE CALL ORDERED FOR FOLLOWUP. TRINI STATES A "GIRL" NAMED FDAI WAS SCHEDULED TO COME JUST BEFORE THE PATIENT'S READMISSION. THE patient had a house call referral his last admission. Trini stated he would call Fadi to let her know the patient had returned to home.
--- NOTE | 2016-05-13 17:41 | NUR ---
PT D/C VIA WHEELCHAIR.
[2016-05-14 09:09] LABS: ERYTHROPOIETIN 49.1 mIU/mL (2.6-18.5)
--- NOTE | 2016-05-14 09:15 | DS ---
PATIENT:ZACH MCKAY :34 MEDICAL RECORD: [id number] DISCHARGE SUMMARY ADMISSION DATE: 05/09/16 DISCHARGE DATE: 05/13/16 DATE OF ADMISSION: 05/09/2016 DATE OF DISCHARGE: 05/13/2016 ADMITTING DIAGNOSES: Healthcare-acquired pneumonia, anemia of unknown etiology, leukocytosis, weakness, dyspnea, urinary tract infection, constipation, functional quadriplegia, Parkinson's. HOSPITAL COURSE: This is a very nice 85-year-old white male, patient of Dr. Alexis, admitted with diagnoses as outlined above. Details are well-outlined in the history of the present illness, H&P. All events, lab procedures, diagnostic testing are well documented in the records. The patient was admitted, appropriate home medicines continued. He was started on IV antibiotics. Bowel regimen established. Speech therapy consulted. Renal ultrasound obtained and Trent catheter placed. Renal ultrasound showed no evidence of hydro. CONSULTANTS: Dr. Marks, pulmonary. His recommendations were followed. Dr. Holloway, hematology-oncology. Her recommendations were followed. Echocardiogram obtained, read by Dr. Cortez. EF 55%, mild mitral regurg, no PE or left ventricular thrombus. Labs and volume were closely followed. Bedside swallow evaluation showed no clinical signs and symptoms of aspiration. He started having bowel movements, bowel regimen continued. He did have some lower extremity edema. We did Doppler his legs, it was negative for DVT. Hemoglobin maintained at 8.4-9.0. Dr. Holloway felt he had anemia of chronic disease. Physical therapy was consulted, they work with strengthening him. He did have one episode of going into atrial fibrillation, but went back into sinus and he stayed in a sinus rhythm. He is felt stable for dismissal home today. He is going to go home on antibiotics. We do have a urine that is growing a Gram-negative thom and we are sending him on doxycycline to cover the healthcare-acquired pneumonia and Gram-negative thom urinary tract infection. DISCHARGE DIAGNOSES: Healthcare-associated pneumonia, anemia of chronic disease, leukocytosis, weakness, shortness of breath, urinary tract infection with Gram-negative rods, constipation, functional quadriplegia, Parkinson disease. Greater than 30 minutes was spent on this discharge. Please refer to med rec. TRANSINT:[id number] Voice Confirmation ID: [id number] DOCUMENT ID: [id number] Dictated By: JOHNSON HANIG RN I have interviewed/examined the above patient and agree with these documented findings. DISCHARGE SUMMARY REPORT [id number] ZACH MCKAY AMY MD at 0915 at 1612 CC: [id number] DICTATION DATE: 05/13/16 1348 MACHINE INSTALLER: 05/13/16 1414 DIS IN 05/13/16 [id number] [place] [address]
[2016-05-14 17:10] LABS: SPE - A/G RATIO 0.8 (0.7-1.7); SPE - ALBUMIN 2.4 g/dL (2.9-4.4); SPE - ALPHA-1 GLOBULIN 0.4 g/dL (0.0-0.4); SPE - ALPHA-2 GLOBULIN 0.9 g/dL (0.4-1.0); SPE - GAMMA GLOBULIN 0.8 g/dL (0.4-1.8); SPE - M-SPIKE Not Observed g/dL (Not Observed); SPE - TOTAL PROTEIN 5.5 g/dL (6.0-8.5)
== END 2016-05-13 18:13 | disposition home or self-care (01) | DRG 193 ==
LOC: D.ER 02:41 → D.M2 04:50
PROVIDERS: Emergency Medicine; Internal Medicine Hematology & Oncology; ADMIT Emergency Medicine
PROC: 0T9B70Z Drainage of Bladder with Drainage Device, Via Natural or Artificial Opening (ICD-10-PCS; principal; 2016-05-09)
DX: J18.9 Pneumonia, unspecified organism (principal); J96.01 Acute respiratory failure with hypoxia; R53.2 Functional quadriplegia; N39.0 Urinary tract infection, site not specified; J98.11 Atelectasis; R53.1 Weakness; K59.00 Constipation, unspecified; D64.9 Anemia, unspecified; G20 Parkinson's disease; I34.0 Nonrheumatic mitral (valve) insufficiency; Z85.79 Personal history of other malignant neoplasms of lymphoid, hematopoietic and related tissues

== ENCOUNTER → 2016-06-01 13:52 | Outpatient (CLI) | payer MEDICARE, OTHER ==
[2016-05-09 10:19] VITALS: BMI 23.7
[~2016-06-01 13:52] MED LIST changes: +VIBRAMYCIN 100100 MG PO
== END | disposition home or self-care (01) ==
LOC: D.LABREF 13:52
DX: N39.0 Urinary tract infection, site not specified (principal)

== ENCOUNTER → 2016-06-26 17:05 | Outpatient (CLI) | payer MEDICARE, OTHER ==
[2016-05-09 10:19] VITALS: BMI 23.7
== END | disposition home or self-care (01) ==
LOC: D.LABREF 17:05
DX: N39.0 Urinary tract infection, site not specified (principal)

== ENCOUNTER → 2016-07-16 20:14 | Outpatient (CLI) | payer MEDICARE, OTHER ==
[2016-05-09 10:19] VITALS: BMI 23.7
== END | disposition home or self-care (01) ==
LOC: D.LABREF 20:14
DX: R30.0 Dysuria (principal)

== ENCOUNTER → 2016-07-30 19:25 | Outpatient (CLI) | payer MEDICARE, OTHER ==
[2016-05-09 10:19] VITALS: BMI 23.7
== END | disposition home or self-care (01) ==
LOC: D.LABREF 19:25
DX: R33.9 Retention of urine, unspecified (principal)

== ENCOUNTER → 2016-11-27 18:03 | Outpatient (CLI) | payer MEDICARE, OTHER ==
[2016-05-09 10:19] VITALS: BMI 23.7
[2016-11-27 21:40] LABS: APPEARANCE CLEAR (CLEAR); BILIRUBIN NEGATIVE (NEGATIVE); COLOR YELLOW (YELLOW); GLUCOSE NEGATIVE (NEGATIVE); KETONE NEGATIVE (NEGATIVE); LEUKOCYTE ESTERASE TRACE (NEGATIVE); NITRITE NEGATIVE (NEGATIVE); PROTEIN NEGATIVE (NEGATIVE); UROBILINOGEN NORMAL (NORMAL)
[2016-11-27 21:41] LABS: BACTERIA MANY /hpf (NONE SEEN); WHITE CELLS - URINE 0-5 /hpf (0-5)
== END | disposition home or self-care (01) ==
LOC: D.LABREF 18:03
PROVIDERS: Urology
DX: N39.0 Urinary tract infection, site not specified (principal)

== ENCOUNTER 2018-05-07 18:27 | Inpatient (IN) | payer MEDICARE, OTHER ==
[~2018-05-07] VITALS: Ht 172.7 cm; Wt 80.6 kg
[2018-05-07] MEDS ORDERED: FISH OIL 1,0001 CA1 PO (18:33)
[2018-05-07] MEDS ORDERED: LOW DOSE ASPIRI81 M1 PO (18:34)
[2018-05-07] MEDS ORDERED: HYTRIN1 MG PO (18:35)
[2018-05-07 19:30] LABS: BASOPHILS 0.4 % (0-2); EOSINOPHILS 5.5 % (0-7); IMMATURE GRANULOCYTES 0.3 % (0-5); LYMPHOCYTES 18.7 % (15-50); MCHC 25.8 g/dL (31.0-37.0); MCV 71.7 fL (80.0-100.0); MEAN PLATELET VOLUME 9.6 fL (7.4-10.4); MONOCYTES 10.7 % (2-11); NEUTROPHILS 64.4 % (40-80); PLATELET COUNT 286 10x3/uL (130-400); RBC 2.54 10x6/uL (4.20-6.10); RDW 20.2 % (11.5-14.5); WBC 6.9 10x3/uL (4.8-10.8)
[2018-05-07 19:34] LABS: INR 1.23 (0.85-1.17); PROTIME 14.9 SECONDS (11.6-15.0)
[2018-05-07 19:37] LABS: HEMATOCRIT 18.2 % (42.0-54.0); HEMOGLOBIN 4.7 g/dL (13.5-17.5); MCH 18.5 pg (26.0-34.0)
[2018-05-07 19:52] LABS: ALBUMIN 2.6 g/dL (3.4-5.0); ALKALINE PHOSPHATASE 152 U/L (46-116); ALT (SGPT) 11 U/L (10-68); BILIRUBIN - TOTAL 0.15 mg/dL (0.2-1.3); CALC OSMOLALITY 278 mosm/kg (275-300); CARBON DIOXIDE 24.5 mmol/L (21.0-32.0); CHLORIDE - SERUM 104 mmol/L (98-107); CREATININE - SERUM 0.7 mg/dL (0.6-1.3); GLUCOSE 82 mg/dL (74-106); POTASSIUM - SERUM 4.5 mmol/L (3.5-5.1); PROTEIN - SERUM 5.8 g/dL (6.4-8.2); SODIUM 139 mmol/L (136-145); UREA NITROGEN 19 mg/dL (7-18); eGFR NON AFRICAN AMERICAN > 90 mL/min (90-120)
--- NOTE | 2018-05-07 20:07 | NUR ---
FIRST UNIT OF BLOOD STARTED.
--- NOTE | 2018-05-07 20:11 | NUR ---
SECOND UNIT OF BLOOD STARTED.
[2018-05-07 22:00] VITALS: BP 159/69
--- NOTE | 2018-05-07 22:00 | NUR ---
PT ADMIT VIA ER STAFF. HE IS A&O X4 AND IS SHOWING SIGNS OF PAIN IN HIS ABD WHEN HE COUGHS. MOVED PT OVER TO ICU BED AND CONNECTED HIM TO ALL MONITORS. TIGHT PARAMETERS SET. PERRLA, 3 MM, BRISK REACTION TO LIGHT. CAPPED TEETH NOTED, ORAL MUCOSA MOIST. PT IS ON RA, RR EVEN AND UNLABORED, O2 SAT 99%, CLEAR LUNG SOUNDS THROUGHOUT ALL LOBES. S1S2 AUDIBLE, HR 70 BPM, NSR SHOWING ON MONITOR. ABD IS ROUND AND SOFT, BS ACTIVE X4. RADIAL AND PEDAL PULSES PALP. UPPER EXT HAS GENERALIZED BRUISING, SCABS/SORES. GENERALIZED MOLES NOTED ON HIS BACK. URINE IS CLEAR YELLOW, COLLECTED IN URINAL. PIV R AC INFUSING PROTONIX GTT, L FA PIV INFUSING NS. ALL NEEDS MET. WILL CONT TO MONITOR CLOSELY.
[2018-05-07 22:02] VITALS: BP 127/76; BMI 26.5
--- NOTE | 2018-05-07 22:30 | NUR ---
DR. QUEEN AT BEDSIDE. NEW ORDERS RECIEVED. INFORMED HIM THAT 2 UN PRBC'S HAVE BEEN INFUSED[address]. QUEEN ORDERED 2 MORE UNITS OF PRBC'S WITH 20 MG LASIX IVP BETWEEN EVERY TWO UNITS. SERIAL H&H ORDERED, CONT PROTONIX GTT, ECHO TO RULE OUT CHF. PARAMETERS: NURSE TO XFUSE 2 UN PRBCS IF HGB < 8. WILL WRITE NURSING MESSAGE. DR. QUEEN REVIEWING HOME MEDS, START NEXT DOSE IN AM.
--- NOTE | 2018-05-07 22:36 | NUR ---
H&H REVIEWED. HGB TRENDING UP.
[2018-05-07 22:56] LABS: HEMOGLOBIN 6.9 g/dL (13.5-17.5)
[2018-05-07 23:00] VITALS: BP 155/68
--- NOTE | 2018-05-07 23:45 | NUR ---
3RD UNIT OF PRBC'S INFUSING.
[2018-05-08] VITALS (25 sets, daily range): BP systolic 120–167; BP diastolic 52–73; Ht 172.7 cm; Wt 80.6 kg
--- NOTE | 2018-05-08 00:30 | NUR ---
DR. THAPA NOTIFIED OF CONSULT. NO NEW ORDERS.
--- NOTE | 2018-05-08 01:00 | NUR ---
PT RESTING PEACEFULLY. NO S/S OF XFUSION REACTION NOTED. WILL CONT WITH POC.
--- NOTE | 2018-05-08 03:00 | NUR ---
REASSESSMENT COMPLETE. PT LYING IN BED WITH NO S/S OF PAIN OR DISCOMFORT. VSS. SEE FLOWSHEET FOR FURTHER DETIALS. CALL LIGHT IN REACH, BED IN LOWEST POSITION, BED ALARM ON. WILL CONT WITH POC.
--- NOTE | 2018-05-08 03:10 | NUR ---
FOURTH UNIT OF PRBC'S INFUSING.
[2018-05-08 03:12] LABS: BASOPHILS 0.3 % (0-2); EOSINOPHILS 4.7 % (0-7); HEMATOCRIT 25.7 % (42.0-54.0); HEMOGLOBIN 7.6 g/dL (13.5-17.5); LYMPHOCYTES 15.1 % (15-50); MCH 22.1 pg (26.0-34.0); MCHC 29.6 g/dL (31.0-37.0); MEAN PLATELET VOLUME 9.8 fL (7.4-10.4); MONOCYTES 13.1 % (2-11); NEUTROPHILS 66.8 % (40-80); RDW 19.2 % (11.5-14.5); WBC 5.8 10x3/uL (4.8-10.8)
[2018-05-08 03:13] LABS: MCV 74.7 fL (80.0-100.0); PLATELET COUNT 224 10x3/uL (130-400); RBC 3.44 10x6/uL (4.20-6.10)
[2018-05-08 03:24] LABS: ALBUMIN 2.5 g/dL (3.4-5.0); ALKALINE PHOSPHATASE 149 U/L (46-116); ALT (SGPT) 12 U/L (10-68); BILIRUBIN - TOTAL 0.51 mg/dL (0.2-1.3); CALC OSMOLALITY 277 mosm/kg (275-300); CALCIUM 7.9 mg/dL (8.5-10.1); CARBON DIOXIDE 25.1 mmol/L (21.0-32.0); CHLORIDE - SERUM 104 mmol/L (98-107); CREATININE - SERUM 0.7 mg/dL (0.6-1.3); GLUCOSE 88 mg/dL (74-106); POTASSIUM - SERUM 4.3 mmol/L (3.5-5.1); PROTEIN - SERUM 5.6 g/dL (6.4-8.2); SODIUM 139 mmol/L (136-145); UREA NITROGEN 15 mg/dL (7-18); eGFR NON AFRICAN AMERICAN > 90 mL/min (90-120)
--- NOTE | 2018-05-08 05:00 | NUR ---
PT RESTING PEACEFULLY WITH NO SIGNS OF ACUTE DISTRESS NOTED. VSS. REPOSITIONED FOR COMFORT. PRBC'S STILL INFUSING AT THIS TIME.
--- NOTE | 2018-05-08 06:40 | NUR ---
DR. THAPA AT BEDSIDE. NO NEW ORDERS AT THIS TIME. RECHECK H&H SCHEDULED AND XFUSE PRBCS BASED OFF DR. QUEEN'S PARAMETERS.
[2018-05-08 10:35] LABS: HEMATOCRIT 28.7 % (42.0-54.0); HEMOGLOBIN 8.8 g/dL (13.5-17.5)
[2018-05-08 14:20] LABS: HEMATOCRIT 28.6 % (42.0-54.0); HEMOGLOBIN 8.6 g/dL (13.5-17.5)
--- NOTE | 2018-05-08 17:25 | NUR ---
0700 ASLEEP AWAKENS WITH LOUD VOISE VERY HARD OH HEARING ASSESSMENT COMPLETE
--- NOTE | 2018-05-08 17:27 | NUR ---
0900 INSTRUCTED NPO NO NEW BLEED NOTED NO STOOLS NOTED
--- NOTE | 2018-05-08 17:28 | NUR ---
1100 RESTING QUIETLY NO DISTRESS NOTED
--- NOTE | 2018-05-08 17:29 | NUR ---
1300 MOUTH CARE PROVIDED WARM BLANKET PLACED OVER PATIENT
--- NOTE | 2018-05-08 17:30 | NUR ---
1500 REPOSITIONED IN BED PATIENT SLIDES LEGS OFF BED EXPLAINED THAT HE WAS IN THE HOSPITAL PT PULLED HIS LEGS BACK UP IN BED
--- NOTE | 2018-05-08 17:32 | NUR ---
1700 DR THAPA AT BEDSIDE WITH NEW ORDERS FOR COLONOSCOPY 05/09/18
--- NOTE | 2018-05-08 17:33 | NUR ---
1715 CONSENT SIGNED FOR COLONOSCOPY WITH TIVA BY PATIENTS SON.
[2018-05-08 18:42] LABS: HEMATOCRIT 28.4 % (42.0-54.0); HEMOGLOBIN 8.6 g/dL (13.5-17.5)
--- NOTE | 2018-05-08 19:24 | NUR ---
REPORT RECIEVED, CARE ASSUMED. INITIAL ASSESSMENT COMPLETED, SEE FLOWSHEET. PT IS RESTING IN BED WITH EYES CLOSED AT THIS TIME. VSS. NO SIGNS OF ACUTE DISTRESS. WILL CONTINUE TO MONITOR.
--- NOTE | 2018-05-08 21:24 | NUR ---
PT IS RESTING IN BED WITH EYES CLOSED. SON IS AT BEDSIDE. NO ACUTE CHANGES NOTED. NO SIGNS OF ACUTE DISTRESS. WILL CONTINUE TO MONITOR.
[2018-05-08 21:41] LABS: HEMATOCRIT 28.5 % (42.0-54.0); HEMOGLOBIN 8.5 g/dL (13.5-17.5)
--- NOTE | 2018-05-08 23:10 | NUR ---
REASSESSMENT COMPLETED, SEE FLOWSHEET. NO SIGNS OF ACUTE DISTRESS. VSS. WILL CONTINUE TO MONITOR.
[2018-05-09] VITALS (16 sets, daily range): BP systolic 111–170; BP diastolic 51–75
--- NOTE | 2018-05-09 01:25 | NUR ---
PT IS IN BED. PT HAS PULLED OFF HIS CONDOM CATH. PT HAS TRIED TO GET OUT OF BED A COUPLE TIMES. TRIED TO REORIENT PT. ATTEMPTED TO INSERT A SERRANO CATH BUT ATTEMPT FAILED. NO OTHER CHANGES NOTED. NO SIGNS OF ACUTE DISTRESS. FALL PRECAUTIONS ARE IN PLACE.
[2018-05-09 03:24] LABS: HEMATOCRIT 29.3 % (42.0-54.0); HEMOGLOBIN 8.7 g/dL (13.5-17.5)
--- NOTE | 2018-05-09 03:25 | NUR ---
REASSESSMENT COMPLETED, SEE FLOWSHEET. PT IS RESTING IN BED. OCCASIONALLY PT TRIES TO GET OOB STILL. PT HAS PULLED OFF CONDOM CATH TWO MORE TIMES SINCE IT WAS REPLACED. NO OTHER CHANGES NOTED. NO SIGNS OF ACUTE DISTRESS. WILL CONTINUE TO MONITOR.
[2018-05-09 03:45] LABS: ALBUMIN 2.5 g/dL (3.4-5.0); ALKALINE PHOSPHATASE 139 U/L (46-116); ALT (SGPT) 9 U/L (10-68); BILIRUBIN - TOTAL 0.45 mg/dL (0.2-1.3); CALC OSMOLALITY 275 mosm/kg (275-300); CALCIUM 8.4 mg/dL (8.5-10.1); CARBON DIOXIDE 22.2 mmol/L (21.0-32.0); CHLORIDE - SERUM 103 mmol/L (98-107); CREATININE - SERUM 0.8 mg/dL (0.6-1.3); GLUCOSE 91 mg/dL (74-106); MAGNESIUM - SERUM 1.8 mg/dL (1.8-2.4); POTASSIUM - SERUM 3.7 mmol/L (3.5-5.1); PROTEIN - SERUM 5.9 g/dL (6.4-8.2); SODIUM 137 mmol/L (136-145); UREA NITROGEN 17 mg/dL (7-18); eGFR NON AFRICAN AMERICAN > 90 mL/min (90-120)
--- NOTE | 2018-05-09 05:25 | NUR ---
PT RESTING IN BED WITH EYES OPEN. PT CONTINUES TO PULL CONDOM CATH OFF. PT WAS INCONTINENT OF URINE AND WAS CLEANED UP. VSS. NO SIGNS OF ACUTE DISTRESS. WILL CONTINUE TO MONITOR.
[2018-05-09 07:40] LABS: BASOPHILS 0.3 % (0-2); EOSINOPHILS 0.9 % (0-7); HEMATOCRIT 28.8 % (42.0-54.0); HEMOGLOBIN 8.5 g/dL (13.5-17.5); IMMATURE GRANULOCYTES 0.1 % (0-5); LYMPHOCYTES 9.5 % (15-50); MCH 22.5 pg (26.0-34.0); MCHC 29.5 g/dL (31.0-37.0); MCV 76.4 fL (80.0-100.0); MEAN PLATELET VOLUME 9.7 fL (7.4-10.4); MONOCYTES 11.1 % (2-11); NEUTROPHILS 78.1 % (40-80); PLATELET COUNT 196 10x3/uL (130-400); RBC 3.77 10x6/uL (4.20-6.10); RDW 19.5 % (11.5-14.5); WBC 7.7 10x3/uL (4.8-10.8)
[2018-05-09 11:43] LABS: HEMATOCRIT 29.2 % (42.0-54.0); HEMOGLOBIN 8.6 g/dL (13.5-17.5)
--- NOTE | 2018-05-09 13:14 | NUR ---
0700 AWAKE ASSESSMENT COMPLETE
--- NOTE | 2018-05-09 13:15 | NUR ---
0900 LAST OF ADINA CONSUMED NO BM HAS RESULTED
--- NOTE | 2018-05-09 13:22 | NUR ---
1100 LARGE LIQUID BM NOTED
--- NOTE | 2018-05-09 13:23 | NUR ---
1200 LARGE LIQUID BM NOTED INCONTINENT OF URINE
--- NOTE | 2018-05-09 13:25 | NUR ---
1300 GI TEAM PRESENT TO BEGIN COLONOSCOPY DR THAPA SPOKE WITH PATIENTS SON ABOUT THE PROCEEDURE
[2018-05-09 14:11] LABS: HEMATOCRIT 27.7 % (42.0-54.0); HEMOGLOBIN 8.1 g/dL (13.5-17.5)
--- NOTE | 2018-05-09 17:03 | NUR ---
1615 REPORT CALLED TO RICHAR ON MED II
--- NOTE | 2018-05-09 17:04 | NUR ---
1630 STARTED 20 GAUGE IV RO RIGHT AC.
--- NOTE | 2018-05-09 17:05 | NUR ---
1635 TRANSPORTED VIA BED TO ROOM 2140 RICHAR ACCEPTED THE PATIENT TO THE ROOM
--- NOTE | 2018-05-09 20:13 | NUR ---
EVENING ROUNDS COMPLETED. PT SITTING UP IN BED WITH EYES OPEN, RR EVEN AND UNLABORED. BED IN LOW POSITION. INTRODUCED SELF TO PT. PT NODS HEAD AND DOES NOT GIVE VERBAL RESPONSE BACK. PT SHAKES HEAD WHEN ASKED IF HAS FURTHER NEEDS. NO S/S OF DISTRESS NOTED. CALL LIGHT IN REACH. WILL CTM.
[2018-05-09 22:21] LABS: HEMATOCRIT 28.8 % (42.0-54.0); HEMOGLOBIN 9.3 g/dL (13.5-17.5)
--- NOTE | 2018-05-09 23:43 | NUR ---
PT SITTING ON TOILET IN ROOM WITH EYES OPEN, RR EVEN AND UNLABORED. NO S/S OF DISTRESS NOTED. 106 UNCONTROLLED AFIB ON THE MONITOR. DENIES FURTHER NEEDS AT THIS TIME. CALL LIGHT IN REACH. WILL CTM.
--- NOTE | 2018-05-09 23:59 | NUR ---
PT SITTING ON TOILET. DENIES ANY DISCOMFORT OR NEEDS. EMERGENY BUTTON WITHIN REACH.
[2018-05-10 00:27] VITALS: BP 160/85
[2018-05-10 02:46] LABS: HEMATOCRIT 27.4 % (42.0-54.0)
[2018-05-10 05:02] VITALS: BP 129/42
[2018-05-10 06:06] LABS: BASOPHILS 0.1 % (0-2); EOSINOPHILS 0.9 % (0-7); HEMATOCRIT 27.1 % (42.0-54.0); HEMOGLOBIN 7.9 g/dL (13.5-17.5); IMMATURE GRANULOCYTES 0.1 % (0-5); LYMPHOCYTES 11.5 % (15-50); MCH 22.5 pg (26.0-34.0); MCHC 29.2 g/dL (31.0-37.0); MCV 77.2 fL (80.0-100.0); MEAN PLATELET VOLUME 9.9 fL (7.4-10.4); MONOCYTES 13.1 % (2-11); NEUTROPHILS 74.3 % (40-80); PLATELET COUNT 210 10x3/uL (130-400); RBC 3.51 10x6/uL (4.20-6.10); RDW 20.4 % (11.5-14.5); WBC 7.7 10x3/uL (4.8-10.8)
--- NOTE | 2018-05-10 06:36 | NUR ---
PT LYING IN BED WITH EYES CLOSED, RR EVEN AND UNLABORED. NO S/S OF DISTRESS NOTED. BED IN LOW POSITION. CALL LIGHT IN REACH. 75 SINUS ON TELE. WILL CTM.
[2018-05-10 06:40] LABS: ALBUMIN 2.2 g/dL (3.4-5.0); ALKALINE PHOSPHATASE 117 U/L (46-116); BILIRUBIN - TOTAL 0.37 mg/dL (0.2-1.3); CALC OSMOLALITY 272 mosm/kg (275-300); CARBON DIOXIDE 25.2 mmol/L (21.0-32.0); CHLORIDE - SERUM 102 mmol/L (98-107); CREATININE - SERUM 0.7 mg/dL (0.6-1.3); GLUCOSE 94 mg/dL (74-106); MAGNESIUM - SERUM 1.8 mg/dL (1.8-2.4); POTASSIUM - SERUM 3.2 mmol/L (3.5-5.1); PROTEIN - SERUM 5.6 g/dL (6.4-8.2); SODIUM 136 mmol/L (136-145); UREA NITROGEN 15 mg/dL (7-18); eGFR NON AFRICAN AMERICAN > 90 mL/min (90-120)
[2018-05-10 06:47] LABS: ALT (SGPT) 6 U/L (10-68)
[2018-05-10 07:29] VITALS: BP 123/47
--- NOTE | 2018-05-10 08:00 | NUR ---
AM ROUNDS COMPLETED. VSS, PT ON TELE, SINUS. AAX1. PT HAS BEEN SLEEPING ALL MORNING, APPEARS LETHARGIC. PT REQUESTED FOR A URINAL. ASSIST PT WITH FEEDING WILL CTM. CL IN REACH, BED IN LOW.
[2018-05-10 10:23] LABS: HEMATOCRIT 27.6 % (42.0-54.0); HEMOGLOBIN 8.1 g/dL (13.5-17.5)
--- NOTE | 2018-05-10 10:34 | NUR ---
PT REFUSE SUPPOSITORY. PT HAVE BEEN SLEEPING ALL MORNING. ONLY AWAKE TO TAKE HIS MEDS AND WENT BACK TO SLEEP. WILL CTM. CL IN REACH, BED IN LOW.
[2018-05-10 11:29] VITALS: BP 129/637
--- NOTE | 2018-05-10 13:40 | NUR ---
RESTING QUIETLY NAD NOTED
[2018-05-10 14:00] LABS: HEMATOCRIT 27.4 % (42.0-54.0); HEMOGLOBIN 8.1 g/dL (13.5-17.5)
--- NOTE | 2018-05-10 16:44 | NUR ---
PT SKIN FELT WARM. ASSESSED PT TEMP. PT TEMP 100F. PLACED A COOL WASH CLOTH ON PT FOREHEAD AND ADMINISTERED TYLENOL PRN. WILL CTM. CL IN REACH, BED IN LOW. PT STATES HE IS FEELING ALOT BETTER AT THIS MOMENT.
--- NOTE | 2018-05-10 17:45 | NUR ---
PT CURRENTLY RECIEVING PCKD RBC'S PER PROVIDERS ORDERS. VSS, AAOX1, NO S/S OF DISTRESS. WILL CTM. CL IN REACH, BED IN LOW.
--- NOTE | 2018-05-10 19:51 | NUR ---
EVENING ROUNDS COMPLETED. REPORT RECEIVED. PT IS LYING IN BED WITH EYES CLOSED, RR EVEN AND UNLABORED. ONE UNIT OF PRBC INFUSING ORDERED THROUGH LEFT AC PIV. BED IN LOW POSITION. NO S/S OF DISTRESS NOTED. CALL LIGHT IS IN REACH. WILL CTM.
[2018-05-10 20:00] VITALS: BP 104/57
--- NOTE | 2018-05-10 20:20 | MORECARE ---
CASE MANAGEMENT DISCHARGE SUMMARY PATIENT: ZACH MCKAY UNIT: [id number] ADM DATE: 05/07/18 AGE: 87 : 32 SEX: M ROOM/BED: D.2140 AUTHOR: CALLIE SHULTZ PHYSICIAN: REFERRING PHYSICIAN: JARED QUEEN MD DATE OF SERVICE: 05/10/18 Discharge Plan Patient Name: ZACH MCKAY [facility] [facility] 1930 Planned Disposition: Anticipated Discharge Date: Discharge Date: Expected LOS: Initial Reviewer: [email or web address] Initial Review Date: 05/07/2018 Generated: 05/10/18 9:20 pm Patient Name: ZACH MCKAY Page [id number] at 2020 All edits/amendments must be made on the electronic document DICTATION DATE: 05/10/182018 LICENSED PSYCHIATRIC TECHNICIAN: CONNOR 05/10/18 2019 RPT#: [id number] DC DATE: STATUS: ADM IN [facility] [address] [place] [address] END OF REPORT
--- NOTE | 2018-05-10 20:26 | MORECARE ---
CASE MANAGEMENT DISCHARGE SUMMARY PATIENT: ZACH MAKI UNIT: [id number] ADM DATE: 05/07/18 AGE: 87 : 32 SEX: M ROOM/BED: D.2140 AUTHOR: CALLIE SHULTZ PHYSICIAN: REFERRING PHYSICIAN: JARED QUEEN MD DATE OF SERVICE: 05/10/18 Discharge Plan Patient Name: ZACH MAKI [facility] [facility] 1930 Planned Disposition: Anticipated Discharge Date: Discharge Date: Expected LOS: Initial Reviewer: [email or web address] Initial Review Date: 05/07/2018 Generated: 05/10/18 9:26 pm Comments DCP- Discharge Planning Updated by [email or web address]: Fern Rosado on 05/10/18 7:[address] CM contacted patient's , Kusum [phone] regarding discharge needs/plans. Patient is sound asleep at this time. Spouse states they will probably staying with their son Blayne Maki. PCP: Dr. Queen. Pharmacy: [facility]. DME: Rolling walker/w seat (uses), Cane (does not use). Spouse states family assist patient with bathing, dressing, meals/feeding (has tremors), medications. Denies need for HHS at this time. Patient has not been hospitalized within past 30 days. Uses no other services in the home as the spouse, son and daughter provide anything needed. Family members will drive patient home upon discharge. Voices no other needs. CM available for further dc needs/plans PRN. Fern Rosado RN CM Last DP export: 05/10/18 7:20 pm Patient Name: ZACH MAKI Page [phone] at 202 All edits/amendments must be made on the electronic document DICTATION DATE: 05/10/182025 EXPEDITIONARY FIGHTING VEHICLE CREWMAN: CONNOR 05/10/182025 RPT#: [id number] DC DATE: STATUS: ADM IN [facility] [address] [place] [address] END OF REPORT
--- NOTE | 2018-05-10 23:18 | NUR ---
PT SITTING UP IN BED WITH EYES CLOSED, RR EVEN AND UNLABORED. OXYGEN AT 2 LITERS BY NASAL CANNULA. BED IN LOW POSITION. BHUPINDER ALARM TURNED ON AND PLACED UNDER PT. CALL LIGHT IN REACH. WILL CTM.
[2018-05-11] VITALS: BP 119/62
--- NOTE | 2018-05-11 01:28 | NUR ---
PT SITTING UP IN BED WITH EYES CLOSED, RR EVEN AND UNLABORED. BED IN LOW POSITION. NO S/S OF DISTRESS NOTED. 74 SINUS ON TELEMETRY. CALL LIGHT IN REACH. WILL CTM.
--- NOTE | 2018-05-11 02:18 | NUR ---
PT RESTING IN BED WITH NO DISTRESS. CALL LIGHT IN REACH. MONITOR AND CPOC.
--- NOTE | 2018-05-11 03:20 | NUR ---
PT SITTING UP IN BED WITH EYES CLOSED, RR EVEN AND UNLABORED. BED IN LOW POSITION. NO S/S OF DISTRESS. 95 SINUS ON TELEMETRY. SON AT BEDSIDE. CALL LIGHT IN REACH. WILL CTM.
--- NOTE | 2018-05-11 03:30 | NUR ---
PT AMBULATED TO TOILET WITH ASSIST USING WALKER. LINEN CHANGE PROVIDED. NO S/S OF DISTRESS. WILL CTM.
[2018-05-11 04:00] VITALS: BP 120/60
[2018-05-11 05:22] LABS: BASOPHILS 0.2 % (0-2); LYMPHOCYTES 18.1 % (15-50); MCH 23.2 pg (26.0-34.0); MCHC 29.3 g/dL (31.0-37.0); MCV 79.1 fL (80.0-100.0); MEAN PLATELET VOLUME 9.9 fL (7.4-10.4); MONOCYTES 10.6 % (2-11); NEUTROPHILS 64.1 % (40-80); PLATELET COUNT 203 10x3/uL (130-400); RDW 20.3 % (11.5-14.5); WBC 5.9 10x3/uL (4.8-10.8)
[2018-05-11 05:29] LABS: HEMATOCRIT 34.1 % (42.0-54.0); RBC 4.31 10x6/uL (4.20-6.10)
[2018-05-11 05:55] LABS: ALBUMIN 2.3 g/dL (3.4-5.0); ALKALINE PHOSPHATASE 123 U/L (46-116); ALT (SGPT) 5 U/L (10-68); BILIRUBIN - TOTAL 0.51 mg/dL (0.2-1.3); CALC OSMOLALITY 273 mosm/kg (275-300); CALCIUM 8.7 mg/dL (8.5-10.1); CARBON DIOXIDE 27.1 mmol/L (21.0-32.0); CHLORIDE - SERUM 103 mmol/L (98-107); CREATININE - SERUM 0.6 mg/dL (0.6-1.3); GLUCOSE 87 mg/dL (74-106); MAGNESIUM - SERUM 1.8 mg/dL (1.8-2.4); POTASSIUM - SERUM 3.8 mmol/L (3.5-5.1); PROTEIN - SERUM 6.1 g/dL (6.4-8.2); SODIUM 138 mmol/L (136-145); T4 THYROXIN - FREE 0.94 ng/dL (0.76-1.46); eGFR NON AFRICAN AMERICAN > 90 mL/min (90-120)
[2018-05-11 05:56] LABS: UREA NITROGEN 11 mg/dL (7-18)
--- NOTE | 2018-05-11 06:32 | NUR ---
PT CURRENTLY SITTING UP IN BED WITH EYES CLOSED, RR EVEN AND UNLABORED. 67 SINUS ON TELEMETRY. BED IN LOW POSITION. SIDE RAILS UP X2. NO S/S OF DISTRESS. WILL CTM.
--- NOTE | 2018-05-11 07:52 | NUR ---
RESUMING PT CARE, PT LAYING IN BED WITH EYES CLOSED, RESPIRATIONS EVEN AND UNLABORED. CALL LIGHT IN REACH, WILL CONTINUE TO MONITOR AND FOLLOW PLAN OF CARE.
[2018-05-11 08:22] VITALS: BP 126/61
--- NOTE | 2018-05-11 09:31 | NUR ---
PT IS ALERT SITTING UP IN BED, RECORDS ASSOCIATE AND HER INSTRUCTER IN ROOM AT THIS TIME TO GIVE MEDS. CALL LIGHT IS IN REACH, WILL CONTINUE TO MONITOR AND FOLLOW PLAN OF CARE.
[2018-05-11 10:50] VITALS: BP 126/61
--- NOTE | 2018-05-11 16:20 | NUR ---
PT IS LAYING IN BED WITH EYES CLOSED, RESPIRATIONS EVEN AND UNLABORED. CALL LIGHT IN REACH, BED IN LOWEST POSITION WITH RAILS UP X2. PT'S SON CALLED TO CHECK ON HIM. WILL CONTINUE TO MONITOR AND FOLLOW PLAN OF CARE.
[2018-05-11 17:41] VITALS: BP 128/88
--- NOTE | 2018-05-11 19:52 | NUR ---
REPORT RECEIVED. EVENING ROUNDS COMPLETED. PT SITTING UP IN BEDSIDE CHAIR WITH EYES CLOSED, RR EVEN AND UNLABORED. OXYGEN AT 2 LITERS BY NASAL CANNULA. BED IN LOW POSITION. BHUPINDER ALARM TURNED ON. 82 SINUS ON TELEMETRY. NO S/S OF DISTRESS NOTED. CALL LIGHT IN REACH. WILL CTM.
[2018-05-11 20:38] VITALS: BP 121/47
--- NOTE | 2018-05-11 21:15 | NUR ---
PT PROVIDED LINEN AND GOWN CHANGE AND AMBULATED 5 STEPS TO TOILET WITH PARTIAL ASSISTANCE OF A NURSE AND WALKER.
[2018-05-12] VITALS: BP 118/67
--- NOTE | 2018-05-12 01:02 | NUR ---
PT HAS CONVERTED OVER FROM A SINUS RHYTHMN TO ATRIAL FIBRILLATION IN THE .
--- NOTE | 2018-05-12 02:01 | NUR ---
PT HAS CONVERTED BACK INTO A SINUS RHYTHMN. WILL CTM.
--- NOTE | 2018-05-12 02:52 | NUR ---
PT RESTING IN BED WITH NO DISTRESS. RESPS EVEN/NONLABORED. CALL LIGHT IN REACH. SR UP X 2. MONITOR AND CPOC.
[2018-05-12 04:00] VITALS: BP 131/64
[2018-05-12 04:08] LABS: BASOPHILS 0.2 % (0-2); HEMATOCRIT 30.3 % (42.0-54.0); HEMOGLOBIN 9.4 g/dL (13.5-17.5); IMMATURE GRANULOCYTES 0.2 % (0-5); LYMPHOCYTES 18.4 % (15-50); MCH 24.6 pg (26.0-34.0); MCV 79.3 fL (80.0-100.0); MONOCYTES 15.1 % (2-11); NEUTROPHILS 58.1 % (40-80); PLATELET COUNT 187 10x3/uL (130-400); RBC 3.82 10x6/uL (4.20-6.10); RDW 20.9 % (11.5-14.5); WBC 5.1 10x3/uL (4.8-10.8)
[2018-05-12 04:29] LABS: CALC OSMOLALITY 278 mosm/kg (275-300); CARBON DIOXIDE 26.6 mmol/L (21.0-32.0); CHLORIDE - SERUM 105 mmol/L (98-107); CREATININE - SERUM 0.6 mg/dL (0.6-1.3); GLUCOSE 108 mg/dL (74-106); POTASSIUM - SERUM 3.8 mmol/L (3.5-5.1); SODIUM 140 mmol/L (136-145); UREA NITROGEN 11 mg/dL (7-18); eGFR NON AFRICAN AMERICAN > 90 mL/min (90-120)
--- NOTE | 2018-05-12 05:28 | NUR ---
PT LYING IN BED WITH EYES CLOSED, RR EVEN AND UNLABORED. BED IN LOW POSITION. NO S/S OF DISTRESS NOTED. CALL LIGHT IN REACH. WILL CTM.
[2018-05-12 07:42] VITALS: BP 134/64
--- NOTE | 2018-05-12 09:57 | NUR ---
RESTS IN BED WITH EYES CLOSED. RESP UL ON . CALL LIGHT IN REACH. WILL CONT. PLAN OF CARE.
[2018-05-12 11:18] VITALS: BP 118/58
--- NOTE | 2018-05-12 11:32 | MORECARE ---
CASE MANAGEMENT DISCHARGE SUMMARY PATIENT: ZACH MAKI UNIT: [id number] ADM DATE: 05/07/18 AGE: 87 : 32 SEX: M ROOM/BED: D.2140 AUTHOR: CALLIE SHULTZ PHYSICIAN: REFERRING PHYSICIAN: JARED QUEEN MD DATE OF SERVICE: 05/12/18 Discharge Plan Patient Name: ZACH MAKI [facility] [facility] 1930 Planned Disposition: Home Anticipated Discharge Date: 05/12/18 Discharge Date: Expected LOS: 5 Initial Reviewer: [email or web address] Initial Review Date: 05/07/2018 Generated: 05/12/18 12:32 pm Comments DCP- Discharge Planning Updated by [email or web address]: Fern Rosado on 05/10/18 7:[address] CM contacted patient's , Kusum [phone] regarding discharge needs/plans. Patient is sound asleep at this time. Spouse states they will probably staying with their son Blayne Maki. PCP: Dr. Queen. Pharmacy: [facility]. DME: Rolling walker/w seat (uses), Cane (does not use). Spouse states family assist patient with bathing, dressing, meals/feeding (has tremors), medications. Denies need for HHS at this time. Patient has not been hospitalized within past 30 days. Uses no other services in the home as the spouse, son and daughter provide anything needed. Family members will drive patient home upon discharge. Voices no other needs. CM available for further dc needs/plans PRN. Fern Rosado RN CM Last DP export: 05/10/18 7:26 pm Patient Name: ZACH MAKI Page [id number] at 1132 All edits/amendments must be made on the electronic document DICTATION DATE: 05/12/181131 ORTHOPAEDIC NURSE: CONNOR 05/12/18 113 RPT#: [id number] DC DATE: STATUS: ADM IN [facility] [address] [place] [address] END OF REPORT
[2018-05-12 15:36] VITALS: BP 126/64
--- NOTE | 2018-05-12 20:55 | NUR ---
PT AWAKEN TO MODERATE STIMULI. PT ALERT BUT LETHARGIC. VITALS STABLE. PT DENIES ANY PAIN OR NEEDS AT THIS TIME. FAMILY AT BEDSIDE. BED LOW CALL LIGHT WITHIN REACH. WILL CONTINUE TO MONITOR.
[2018-05-12 21:11] VITALS: BP 121/63
--- NOTE | 2018-05-12 23:07 | NUR ---
PT RESTING IN BED. RR EVEN AND UNLABORED. BED LOW CALL LIGHT WITHIN REACH. WILL CONTINUE TO MONITOR.
--- NOTE | 2018-05-13 00:04 | NUR ---
PT URINATED 150ML OF URINE THAT RESEMBLED THE COLOR OF COCA-COLA. DR. MONTOYA NOTIFIED. SAMPLE SENT TO LAB FOR FURTHER EVALUATION. BED LOW CAll light within REACH. FAMILY AT BEDSIDE. WILL CONTINUE TO MONITOR.
[2018-05-13 00:30] LABS: APPEARANCE CLEAR (CLEAR); BILIRUBIN NEGATIVE (NEGATIVE); COLOR BROWN (YELLOW); GLUCOSE NEGATIVE (NEGATIVE); KETONE NEGATIVE (NEGATIVE); NITRITE NEGATIVE (NEGATIVE); PROTEIN NEGATIVE (NEGATIVE); SPECIFIC GRAVITY 1.015 (1.005-1.020)
[2018-05-13 00:33] LABS: BACTERIA FEW /hpf (NONE SEEN); EPITHELIAL CELLS 0-5 /hpf (0-5); MUCUS >1+ /lpf (NONE SEEN); WHITE CELLS - URINE 0-5 /hpf (0-5)
[2018-05-13 02:25] VITALS: BP 162/46
--- NOTE | 2018-05-13 03:43 | NUR ---
PT RESTING IN BED WITH EYES CLOSED. RESPIRATIONS EVEN AND UNLABORED. WILL CONTINUE TO MONITOR. BED LOW CALL LIGHT WITHIN REACH.
[2018-05-13 05:16] LABS: BASOPHILS 0.4 % (0-2); EOSINOPHILS 10.7 % (0-7); HEMATOCRIT 31.3 % (42.0-54.0); HEMOGLOBIN 9.1 g/dL (13.5-17.5); IMMATURE GRANULOCYTES 0.2 % (0-5); LYMPHOCYTES 23.1 % (15-50); MCH 23.3 pg (26.0-34.0); MCHC 29.1 g/dL (31.0-37.0); MCV 80.3 fL (80.0-100.0); MEAN PLATELET VOLUME 9.8 fL (7.4-10.4); MONOCYTES 15.5 % (2-11); NEUTROPHILS 50.1 % (40-80); PLATELET COUNT 182 10x3/uL (130-400); RDW 21.8 % (11.5-14.5); WBC 4.8 10x3/uL (4.8-10.8)
[2018-05-13 05:41] LABS: CALC OSMOLALITY 277 mosm/kg (275-300); CARBON DIOXIDE 26.2 mmol/L (21.0-32.0); CHLORIDE - SERUM 106 mmol/L (98-107); CREATININE - SERUM 0.6 mg/dL (0.6-1.3); GLUCOSE 100 mg/dL (74-106); POTASSIUM - SERUM 3.8 mmol/L (3.5-5.1); SODIUM 140 mmol/L (136-145); UREA NITROGEN 10 mg/dL (7-18); eGFR NON AFRICAN AMERICAN > 90 mL/min (90-120)
[2018-05-13 06:24] VITALS: BP 151/57
--- NOTE | 2018-05-13 07:30 | NUR ---
RECEIVED A/A/OX4. REQUESTS TO BE ASSISTED UP TO BEDSIDE CHAIR AND DONE. PT TOLERATED WELL. DENIES ANY PAIN OR DISCOMFORT. REQUESTS THAT I ASK DR IF HE CAN HAVE SOMETHING TO HELP INCREASE HIS APPETITE. STATES HE JUST DOESNT WANT TO EAT MUCH. ASSESSMENT COMPLETED. WANTS TO REMAIN UP IN CHAIR. CALL LIGHT IN REACH. WILL CONTINUE POC.
--- NOTE | 2018-05-13 07:30 | NUR ---
RECEIVED A/A/OX1 TO PERSON ONLY. ASSISTED UP TO BATHROOM AND HAD SOFT FORMED STOOL LIGHT BROWN IN COLOR. ASSISTED BACK TO BEDSIDE CHAIR AND TOLERATED WELL USING HIS WALKER. PULLED IV OUT EARLIER AND WILL BE RESTARTED BY STUDENT NURSE. CALL LIGHT IN REACH ON BEDSIDE FOR PT. NO OTHER REQUESTS AND DENIES ANY PAIN. WILL CONTINUE POC
[2018-05-13 08:14] VITALS: BP 134/68
--- NOTE | 2018-05-13 09:14 | NUR ---
UP SOB WITH CALL LIGHT IN REACH. WILL MONITOR NEEDS.
--- NOTE | 2018-05-13 09:52 | NUR ---
IV RESTARTED IN RIGHT FOREARM WITH 22 GAUGE X 1 ATTEMPT. IV INFUSING WELL.
--- NOTE | 2018-05-13 10:45 | EC ---
PATIENT:ZACH MCKAY DATE OF SERVICE: 05/07/18 SEX: M MEDICAL RECORD: [id number] DATE OF : [birth year] LOCATION:D.M2 D.214 AGE OF PATIENT: 87 ADMISSION DATE: 05/07/18 REFERRING PHYSICIAN: INTERPRETING PHYSICIAN: ARGENTINA CORTEZ MD ECHOCARDIOGRAM REPORT ECHO CHARGES 4 ECHO COMPLETE Date: 05/08/18 CLINICAL DIAGNOSIS: CHF ECHOCARDIOGRAPHIC MEASUREMENTS (adult normal given) AC root (d.<3.7cm) 3.5 cm LV Septum d (<1.2 cm> 1.2 cm Valve Excursion 1.5 cm LV Septum (systole) 1.5 cm Left Atria (s.<4.0cm> 3.9 cm LVPW d(<1.2cm) 1.4 cm RV (d.<2.3cm) 3.5 cm LVPW (sytole) 1.6 cm LV diastole(<5.6CM) 5.4 cm MV E-F(>70mm/sec) cm LV systole 3.4 cm LVOT Diameter 1.8 cm MV exc.(>10mm) 1.1 cm Est.ejection fraction (50-75%) % DOPPLER: LVIT cm/sec A 67.0 cm/sec E 86.0 cm/sec LA cm/sec RVSP 33 mmHg LVOT 107 cm/sec AOP1/2T m/s Asc. Ao 169 cm/sec RVOT 102 cm/sec RA cm/sec PA 164 cm/sec AV Gradient Peak 11.42mmHg AV Mean 4.92 mmHg AV Area 1.6 cm MV Gradient Peak 2.99 mmHg MV Mean 1.47 mmHg MV Area cm COMMENTS: Math And Sciences Department Chair: Miko WILL Assembler Brazer: 1 Dr. Cortez TAPE# PACS Pericardial Effusion N DATE OF SERVICE: 05/08/2018 PROCEDURE: Echocardiogram. FINDINGS: 1. Left ventricular chamber size is within normal limits. Left ventricular systolic function is normal. Overall ejection fraction estimated at 55%. 2. Left atrium, right atrium, and right ventricle chamber sizes are within normal limits. 3. 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 There is a gradient of 12 mm across the valve. The remaining valvular structures have normal structure and motion. 4. Doppler interrogation elsewise reveals mild mitral regurgitation, mild tricuspid regurgitation, no other valvular insufficiency or stenosis. Pulmonary systolic pressure is estimated 33 mmHg. 5. No evidence of pericardial effusion or left ventricular thrombus. TRANSINT:[id number] Voice Confirmation ID: [id number] DOCUMENT ID: [id number] ARGENTNIA CORTEZ MD at 1045 CC: [id number] DICTATION DATE: 05/09/18 1027 TRAIN BRAKER: 05/09/18 1139 ADM IN [place] [id number] [place] [id number]
--- NOTE | 2018-05-13 10:57 | MORECARE ---
CASE MANAGEMENT DISCHARGE SUMMARY PATIENT: ZACH MAKI UNIT: [id number] ADM DATE: 05/07/18 AGE: 87 : 32 SEX: M ROOM/BED: D.2140 AUTHOR: CARRINGTONDOC PHYSICIAN: REFERRING PHYSICIAN: JARED QUEEN MD DATE OF SERVICE: 05/13/18 Discharge Plan Patient Name: ZACH MAKI Facility: [facility]:[place] : 1930 Planned Disposition: Home Anticipated Discharge Date: 05/13/18 Discharge Date: Expected LOS: 6 Initial Reviewer: [id number] Initial Review Date: 05/07/2018 Generated: 05/13/18 11:57 am Comments DCP- Discharge Planning Updated by [id number]: Laurent [place] on 05/13/18 9:[address] Patient Name: ZACH MAKI Encounter No: [id number] : 1930 Primary Insurance: MEDICARE A & B Anticipated DC Date: 05-13-2018 Planned Disposition: Home DCP follow-up note: CM MET WITH PT IN ROOM TO DISCUSS DISCHARGE NEEDS AND PLANNING. CM DISCUSSED AVAILABILITY OF HOME HEALTH, REHAB SERVICES AND MEDICAL EQUIPMENT. PT DENIES DISCHARGE NEEDS, DECLINES HOME HEALTH. PT REPORTS HE HAS HIS AND SON TO ASSIST AT HOME IF NEEDED. PT REPORTS H IS SON WILL PICK HIM UP TODAY TO TRANSPORT HOME AT DISCHARGE. IMPORTANT MESSAGE FROM MEDICARE PROVIDED AND EXPLAINED. CM TO FOLLOW AND ASSIST NEEDED. MARICHUY Wu DCP- Discharge Planning Updated by [id number]: Fern Ashlee on 05/10/18 7:[address] CM contacted patient's , Kusum @[phone] regarding discharge needs/plans. Patient is sound asleep at this time. Spouse states they will probably staying with their son Blayne Maki. PCP: Dr. Queen. Pharmacy: [facility]. DME: Rolling walker/w seat (uses), Cane (does not use). Spouse states family assist patient with bathing, dressing, meals/feeding (has tremors), medications. Denies need for HHS at this time. Patient has not been hospitalized within past 30 days. Uses no other services in the home as the spouse, son and daughter provide anything needed. Family members will drive patient home upon discharge. Voices no other needs. CM available for further dc needs/plans PRN. Fern Rosado RN CM Coverage Notice Reviewer: [id number] - Laurent [place] Notice Issued Date-Time: 05/13/2018 10:40 Notice Type: IM Discharge Notice Notice Delivered To: Patient Relationship to Patient: Senior Solutions Engineer Name: Delivery Method: HAND - Hand Delivered Helena Days: Prior Verbal Notification: Recipient Understood Notice: Yes Recipient Signature: Yes Med Rec Note Co-signed by Attending: Coverage Notice Comment: Last DP export: 05/12/18 10:32 a Patient Name: ZACH MAKI Page [id number] at 1057 All edits/amendments must be made on the electronic document DICTATION DATE: 05/13/18 1056 LEGISLATIVE AIDE: CONNOR 05/13/18 1056 RPT#: [id number] DC DATE: STATUS: ADM IN [facility] [address] [place] [address] END OF REPORT
--- NOTE | 2018-05-13 11:30 | NUR ---
PT SON CALLED TO ASK ABOUT HIS CONDITION AND IF HE WAS TO BE DISCHARGED. INFORMED HIM PT HAS DISCHARGE ORDER FOR TODAY. SON STATES HE IS WORKING UNTIL LATE TONIGHT AND WOULD LIKE TO BE ABLE TO PICK HIM UP TOMORROW MORNING. CHECKED WITH DR. LINDSAY MEZA AND ORDER RECEIVED TO CANCEL DISCHARGE FOR TODAY.
--- NOTE | 2018-05-13 11:52 | NUR ---
PATIENTS BEDSIDE NURSE CAME TO TELLING US THAT SHE WAS GOING TO HOLD A DISCHARGE BECAUSE THE PATIENTS SON WAS AT WORK ON A 15 HOUR SHIFT AND CAN NOT COME AND GET HIM. APARENTLY THE PATIENT CANNOT DRIVE. SHE STATED THAT THE PATIENT IS TOO CONFUSED AND W/C BOUND AND THEREFORE COULD NOT GO BY [place] [facility] [place]. SHE WANTED US TO TAKE CARE OF IT AND I EXPLAINED SHE NEEDS TO TALK TO THE DOCTOR ABOUT THE PATIENT NOT BEING ABLE TO DISCHARGE HOME. SHE WAS NOT HAPPY WITH THAT ANSWER BUT TALKED WITH THE NURSE PRACTITIONER AND PUT IN A CANCEL DISCHARGE ORDER, BUT DID NOT PUT IN A NOTE SHE WAS ASKED TO DO BY SHREE AND THE INFORMATION ASSISTANT. THEREFORE, THIS NOTE BEING PUT IN TO NOTIFY WHY DISCHARGE CANCELLED.
[2018-05-13 11:57] VITALS: BP 130/62
--- NOTE | 2018-05-13 12:30 | NUR ---
REQUESTED HELP TO BATHROOM AND USED WALKER WITH MINIMAL ASST. VOIDED AND URINE NOTED TO BE DARK YELLOW COLOR. DENIES ANY DISCOMFORT WITH VOIDING.
[2018-05-13 15:52] VITALS: BP 130/61
[2018-05-13 20:00] VITALS: BP 129/62
--- NOTE | 2018-05-14 08:20 | MORECARE ---
CASE MANAGEMENT DISCHARGE SUMMARY PATIENT: ZACH MAKI UNIT: [id number] ADM DATE: 05/07/18 AGE: 87 : 32 SEX: M ROOM/BED: D.2140 AUTHOR: CARRINGTON,DOC PHYSICIAN: REFERRING PHYSICIAN: JARED QUEEN MD DATE OF SERVICE: 05/14/18 Discharge Plan Patient Name: ZACH MAKI Facility: [facility]:[place] : 1930 Planned Disposition: Home Anticipated Discharge Date: 05/13/18 Discharge Date: 05/13/2018 Expected LOS: 6 Initial Reviewer: [id number] Initial Review Date: 05/07/2018 Generated: 05/14/18 9:20 am Comments DCP- Discharge Planning Updated by [email or web address]: Laurent Henderson on 05/13/18 9:[address] Patient Name: ZACH MAKI Encounter No: [id number] : 1930 Primary Insurance: MEDICARE A & B Anticipated DC Date: 05-13-2018 Planned Disposition: Home DCP follow-up note: CM MET WITH PT IN ROOM TO DISCUSS DISCHARGE NEEDS AND PLANNING. CM DISCUSSED AVAILABILITY OF HOME HEALTH, REHAB SERVICES AND MEDICAL EQUIPMENT. PT DENIES DISCHARGE NEEDS, DECLINES HOME HEALTH. PT REPORTS HE HAS HIS AND SON TO ASSIST AT HOME IF NEEDED. PT REPORTS H IS SON WILL PICK HIM UP TODAY TO TRANSPORT HOME AT DISCHARGE. IMPORTANT MESSAGE FROM MEDICARE PROVIDED AND EXPLAINED. CM TO FOLLOW AND ASSIST NEEDED. MARICHUY Wu DCP- Discharge Planning Updated by [email or web address]: Fern Rosado on 05/10/18 7:[address] CM contacted patient's , Kusum @[phone] regarding discharge needs/plans. Patient is sound asleep at this time. Spouse states they will probably staying with their son Blayne Maki. PCP: Dr. Queen. Pharmacy: [facility]. DME: Rolling walker/w seat (uses), Cane (does not use). Spouse states family assist patient with bathing, dressing, meals/feeding (has tremors), medications. Denies need for HHS at this time. Patient has not been hospitalized within past 30 days. Uses no other services in the home as the spouse, son and daughter provide anything needed. Family members will drive patient home upon discharge. Voices no other needs. CM available for further dc needs/plans PRN. Fern Rosado RN CM Coverage Notice Reviewer: [id number] Bret Laurent [place] Notice Issued Date-Time: 05/13/2018 10:40 Notice Type: IM Discharge Notice Notice Delivered To: Patient Relationship to Patient: Work Force Advisor Name: Delivery Method: HAND - Hand Delivered Helena Days: Prior Verbal Notification: Recipient Understood Notice: Yes Recipient Signature: Yes Med Rec Note Co-signed by Attending: Coverage Notice Comment: Last DP export: 05/13/18 9:57 a Patient Name: ZACH MAKI Page [id number] at 0820 All edits/amendments must be made on the electronic document DICTATION DATE: 05/14/18818 PROFESSOR OF BIOCHEMISTRY: CONNOR 05/14/18818 RPT#: [id number] DC DATE:05/13/18 STATUS: DIS IN [facility] [address] [place] [address] END OF REPORT
== END 2018-05-13 23:30 | disposition home or self-care (01) | DRG 378 ==
LOC: D.ER 18:27 → D.EDHOLD 20:06 → D.ICU 20:06 → D.M2 05-09 16:52
PROVIDERS: Emergency Medicine; Family Medicine; Internal Medicine Gastroenterology; Internal Medicine Nephrology; ADMIT Family Medicine
PROC: 0DJD8ZZ Inspection of Lower Intestinal Tract, Via Natural or Artificial Opening Endoscopic (ICD-10-PCS; principal; 2018-05-09 13:00)
DX: K92.2 Gastrointestinal hemorrhage, unspecified (principal); D62 Acute posthemorrhagic anemia; G20 Parkinson's disease; F32.9 Major depressive disorder, single episode, unspecified; N40.0 Benign prostatic hyperplasia without lower urinary tract symptoms; D50.9 Iron deficiency anemia, unspecified

== ENCOUNTER 2018-09-10 12:45 | Inpatient (IN) | payer MEDICARE, OTHER ==
[~2018-09-10] VITALS: Ht 172.7 cm; Wt 83.5 kg
[~2018-09-10 12:45] MED LIST changes: +FISH OIL 1,0001 CA1 PO; +HYTRIN1 MG PO; +LOW DOSE ASPIRI81 M1 PO; +OMNICEF300 MG PO; +PROSCAR5 MG PO; +ZITHROMAX500 MG PO
[2018-09-10 13:30] VITALS: BP 143/62
[2018-09-10 13:37] LABS: ALBUMIN 2.9 g/dL (3.4-5.0); ALKALINE PHOSPHATASE 145 U/L (46-116); ALT (SGPT) 8 U/L (10-68); BILIRUBIN - TOTAL 0.19 mg/dL (0.2-1.3); CALC OSMOLALITY 278 mosm/kg (275-300); CALCIUM 9.3 mg/dL (8.5-10.1); CARBON DIOXIDE 30.7 mmol/L (21.0-32.0); CHLORIDE - SERUM 105 mmol/L (98-107); CREATININE - SERUM 0.7 mg/dL (0.6-1.3); GLUCOSE 85 mg/dL (74-106); POTASSIUM - SERUM 4.1 mmol/L (3.5-5.1); PROTEIN - SERUM 6.8 g/dL (6.4-8.2); SODIUM 139 mmol/L (136-145); UREA NITROGEN 17 mg/dL (7-18); eGFR NON AFRICAN AMERICAN > 90 mL/min (90-120)
[2018-09-10 13:44] LABS: INR 1.16 (0.85-1.17); PROTIME 14.3 SECONDS (11.6-15.0)
[2018-09-10 13:47] LABS: CREATINE KINASE 42 UL (21-232); LIPASE 118 U/L (73-393); PRO BNP 12 pg/mL (0-450); THYROID STIMULATING HORMONE 3.23 uIU/mL (0.36-3.74)
[2018-09-10 13:48] LABS: TROPONIN-I < 0.017 ng/mL (0.000-0.060)
[2018-09-10 14:00] LABS: BASOPHILS 0.3 % (0-2); EOSINOPHILS 6.5 % (0-7); HEMATOCRIT 40.3 % (42.0-54.0); HEMOGLOBIN 13.3 g/dL (13.5-17.5); IMMATURE GRANULOCYTES 0.1 % (0-5); LYMPHOCYTES 29.6 % (15-50); MCH 30.9 pg (26.0-34.0); MCV 93.7 fL (80.0-100.0); MEAN PLATELET VOLUME 10.3 fL (7.4-10.4); MONOCYTES 8.6 % (2-11); NEUTROPHILS 54.9 % (40-80); RDW 14.1 % (11.5-14.5); WBC 7.1 10x3/uL (4.8-10.8)
[2018-09-10 14:02] LABS: PLATELET COUNT 214 10x3/uL (130-400)
[2018-09-10 14:23] VITALS: BP 139/61
[2018-09-10 14:36] LABS: UDS - AMPHET NEGATIVE QUAL (NEGATIVE); UDS - BARB POSITIVE QUAL (NEGATIVE); UDS - BENZO NEGATIVE QUAL (NEGATIVE); UDS - COCAINE NEGATIVE QUAL (NEGATIVE); UDS - OPIATE NEGATIVE QUAL (NEGATIVE); UDS - PCP NEGATIVE QUAL (NEGATIVE); UDS - THC NEGATIVE QUAL (NEGATIVE)
[2018-09-10 14:42] LABS: APPEARANCE CLEAR (CLEAR); BILIRUBIN NEGATIVE (NEGATIVE); COLOR STRAW (YELLOW); GLUCOSE NEGATIVE (NEGATIVE); KETONE NEGATIVE (NEGATIVE); NITRITE NEGATIVE (NEGATIVE); PROTEIN TRACE mg/dL (NEGATIVE); UROBILINOGEN NORMAL (NORMAL)
[2018-09-10 14:43] LABS: EPITHELIAL CELLS 0-5 /hpf (0-5)
[2018-09-10 14:44] LABS: AMORPHOUS SEDIMENT <1+ /lpf (NONE SEEN); BACTERIA FEW /hpf (NONE SEEN)
[2018-09-10 16:14] VITALS: BP 142/68
--- NOTE | 2018-09-10 16:15 | NUR ---
ROCEPHIN 1 GM IVPB COMPLETED
--- NOTE | 2018-09-10 16:28 | NUR ---
REPORT CALLED TO CLEVE CASTRO BY SBAR FORMAT
[2018-09-10 16:49] VITALS: BP 139/61
--- NOTE | 2018-09-10 16:52 | NUR ---
AZITHROMYCIN 500 MG INFUSING UPON TX TO FLOOR
[2018-09-10 17:21] VITALS: BMI 28.0
--- NOTE | 2018-09-10 17:28 | NUR ---
PT RECIEVED TO FLOOR. NONVERBAL. NO FAM AT BEDSIDE
[2018-09-10 20:00] VITALS: BP 123/64
[2018-09-11 04:00] VITALS: BP 128/61
[2018-09-11 05:10] LABS: BASOPHILS 0.3 % (0-2); EOSINOPHILS 4.5 % (0-7); HEMOGLOBIN 12.5 g/dL (13.5-17.5); IMMATURE GRANULOCYTES 0.2 % (0-5); LYMPHOCYTES 27.5 % (15-50); MCH 30.8 pg (26.0-34.0); MCHC 32.9 g/dL (31.0-37.0); MCV 93.6 fL (80.0-100.0); MEAN PLATELET VOLUME 10.8 fL (7.4-10.4); MONOCYTES 8.4 % (2-11); NEUTROPHILS 59.1 % (40-80); PLATELET COUNT 193 10x3/uL (130-400); RBC 4.06 10x6/uL (4.20-6.10); RDW 13.7 % (11.5-14.5); WBC 5.8 10x3/uL (4.8-10.8)
[2018-09-11 06:02] LABS: ALBUMIN 2.7 g/dL (3.4-5.0); ALKALINE PHOSPHATASE 141 U/L (46-116); BILIRUBIN - TOTAL 0.26 mg/dL (0.2-1.3); CALC OSMOLALITY 279 mosm/kg (275-300); CARBON DIOXIDE 28.1 mmol/L (21.0-32.0); CHLORIDE - SERUM 107 mmol/L (98-107); CREATININE - SERUM 0.6 mg/dL (0.6-1.3); GLUCOSE 76 mg/dL (74-106); PROTEIN - SERUM 6.2 g/dL (6.4-8.2); SODIUM 141 mmol/L (136-145); UREA NITROGEN 13 mg/dL (7-18); eGFR NON AFRICAN AMERICAN > 90 mL/min (90-120)
[2018-09-11 06:04] LABS: ALT (SGPT) 11 U/L (10-68)
--- NOTE | 2018-09-11 07:25 | NUR ---
PT RESTING IN BED, EYES CLOSED. RESPIRATIONS EVEN AND UNLABORED. AROUSES TO VOICE. PT CONFUSED, ALERT TO SELF ONLY. BED ALARM ON. IV TO LEFT AC, NS INFUSING @ 100ML/HR. ON TELEMETRY 53 SB. PT DENIES ANYTHING FURTHER AT THIS TIME. CALL LIGHT IN REACH. WILL CONTINUE TO MONITOR.
[2018-09-11 09:38] VITALS: BP 173/58
[2018-09-11 12:32] VITALS: Ht 172.7 cm; Wt 83.5 kg
--- NOTE | 2018-09-11 12:53 | NUR ---
PT IV FELL OUT, RESITED TO LEFT FOREARM X1 STICK 22GA.
[2018-09-11 14:11] VITALS: BP 119/72
--- NOTE | 2018-09-11 17:02 | NUR ---
I have reviewed this patient and I concur with the Shift Assessment completed by the Licensed Practical Nurse today this shift.
[2018-09-11 17:56] VITALS: BP 119/56
--- NOTE | 2018-09-11 18:31 | NUR ---
PT RESTING IN BED, EYES OPEN. PLEASANTLY CONFUSED. EATING SUPPER. NO C/O PAIN. NO S/S OF ACUTE DISTRESS NOTED. PT DENIES ANYTHING FURTHER AT THIS TIME. CALL LIGHT IN REACH. WILL CONTINUE TO MONITOR.
--- NOTE | 2018-09-11 20:00 | NUR ---
ALERT RESTING IN BED, NO APPARENT DISTRESS, CALL DANIELA POND, SR UP X 3,
--- NOTE | 2018-09-11 20:45 | NUR ---
PT FOUND OF FLOOR AT SIDE OF BED, BED ALARM GOING OFF,ASSISTED BACK TO BED NO SIGN OF INJURY, CALL LIGHT IN REACH, SIDE RAILS UP X 3, SON TRINI AND SAUD, CLERICAL SUPPORT SPECIALIST NOTIFIED
[2018-09-11 21:08] VITALS: BP 130/63
[2018-09-12 04:58] VITALS: BP 135/60
[2018-09-12 06:15] LABS: BASOPHILS 0.2 % (0-2); EOSINOPHILS 6.1 % (0-7); HEMATOCRIT 36.5 % (42.0-54.0); HEMOGLOBIN 12.2 g/dL (13.5-17.5); IMMATURE GRANULOCYTES 0.2 % (0-5); LYMPHOCYTES 31.1 % (15-50); MCH 30.6 pg (26.0-34.0); MCHC 33.4 g/dL (31.0-37.0); MEAN PLATELET VOLUME 10.3 fL (7.4-10.4); MONOCYTES 10.3 % (2-11); NEUTROPHILS 52.1 % (40-80); PLATELET COUNT 177 10x3/uL (130-400); RBC 3.99 10x6/uL (4.20-6.10); RDW 13.4 % (11.5-14.5)
[2018-09-12 06:19] LABS: MCV 91.5 fL (80.0-100.0)
[2018-09-12 06:54] LABS: ALBUMIN 2.7 g/dL (3.4-5.0); ALKALINE PHOSPHATASE 147 U/L (46-116); BILIRUBIN - TOTAL 0.19 mg/dL (0.2-1.3); CALC OSMOLALITY 283 mosm/kg (275-300); CALCIUM 9.3 mg/dL (8.5-10.1); CARBON DIOXIDE 27.6 mmol/L (21.0-32.0); CHLORIDE - SERUM 108 mmol/L (98-107); CREATININE - SERUM 0.6 mg/dL (0.6-1.3); GLUCOSE 92 mg/dL (74-106); POTASSIUM - SERUM 4.1 mmol/L (3.5-5.1); PROTEIN - SERUM 6.1 g/dL (6.4-8.2); SODIUM 143 mmol/L (136-145); UREA NITROGEN 10 mg/dL (7-18); eGFR NON AFRICAN AMERICAN > 90 mL/min (90-120)
[2018-09-12 06:57] LABS: ALT (SGPT) 8 U/L (10-68)
--- NOTE | 2018-09-12 08:00 | NUR ---
AWAKE WITH CONFUSION NOTED. ENCOURAGED TO USE CALL LIGHT FOR ASSSIT BUT GETS UP WITHOUT ASSIST. BHUPINDER MAT INPLACE. TELEMETRY INTACT AND ATTEMPTS TO GOT UP W/O ASSIST.
[2018-09-12 08:45] VITALS: BP 145/58
--- NOTE | 2018-09-12 11:05 | MORECARE ---
CASE MANAGEMENT DISCHARGE SUMMARY PATIENT: ZACH MCKAY UNIT: [id number] ADM DATE: 09/10/18 AGE: 88 : 32 SEX: M ROOM/BED: D.2232 AUTHOR: CALLIE SHULTZ PHYSICIAN: REFERRING PHYSICIAN: RADHA ELIZONDO MD DATE OF SERVICE: 09/12/18 Discharge Plan Patient Name: ZACH MCKAY [facility] [facility] 1930 Planned Disposition: Senior Living Facility Anticipated Discharge Date: Discharge Date: Expected LOS: Initial Reviewer: [email or web address] Initial Review Date: 09/12/2018 Generated: 09/12/18 12:05 pm Patient Name: ZACH MCKAY Page 00133 at 1105 All edits/amendments must be made on the electronic document DICTATION DATE: 09/12/18 1105 ELECTRIC MULE OPERATOR: CONNOR 09/12/18 1105 RPT#: [id number] DC DATE: STATUS: ADM IN [facility] [address] [place] [address] END OF REPORT
--- NOTE | 2018-09-12 11:16 | MORECARE ---
CASE MANAGEMENT DISCHARGE SUMMARY PATIENT: ZACH MAKI UNIT: [id number] ADM DATE: 09/10/18 AGE: 88 : 32 SEX: M ROOM/BED: D.2232 AUTHOR: CARRINGTON,DOC PHYSICIAN: REFERRING PHYSICIAN: RADHA ELIZONDO MD DATE OF SERVICE: 09/12/18 Discharge Plan Patient Name: ZACH MAKI Facility: [facility]:[place] : 1930 Planned Disposition: Residential Facility Anticipated Discharge Date: Discharge Date: Expected LOS: Initial Reviewer: [email or web address] Initial Review Date: 09/12/2018 Generated: 09/12/18 12:16 pm Comments DCP- Discharge Planning Updated by [id number]: Saima Azar on 09/12/18 10:[address] Patient Name: ZACH MAKI Admission Status: ER Accout number: [id number] Admission Date: 09-10-2018 : 1930 Admission Diagnosis: Attending: CARO, Current LOS: 2 Anticipated DC Date: Planned Disposition: Residential Facility Primary Insurance: MEDICARE A & B Discharge Planning Comments: Met with patient yesterday, he was unable to answer any questions. I called his son (Blayne) and left a message to return my call. Blayne called and states that he had his father going to [facility] for penitentiary and then was probably going to transition to a intermediate designer bed. When the ambulance came to take him there, they brought him to the hospital for acute illness. His son states that the plan is for him to go to [facility] when he is medically stable for discharge. I notified franky Bermudez for [facility], and clinical faxed. CM will continue to follow and assist with discharge planning/needs. Shellfish Dredge Operator: Saima Azar DCPIA - Discharge Planning Initial Assessment Updated by [email or web address]: Saima Azar on 09/12/18 11:05 am * Is the patient Alert and Oriented? No * PCP Dr. Alexis * Pharmacy [facility] [place] [facility] [address] * Preadmission Environment Home with Family * ADLs Total Dependent * Equipment Other Rolling Walker Tub Bench Wheelchair * Other Equipment Transfer bench * List name and contact numbers for known caregivers / representatives who currently or will assist patient after discharge: Blayne Maki - son - [phone] or * Verbal permission to speak to the caregivers and representatives has been obtained from the patient. N/A * Community resources currently utilized None * Additional services required to return to the preadmission environment? Yes * Can the patient safely return to the preadmission environment? No * Has this patient been hospitalized within the prior 30 days at any hospital? No Coverage Notice Reviewer: [id number] Bret Azar Notice Issued Date-Time: 09/11/2018 15:30 Notice Type: Patient Choice Letter Notice Delivered To: Family Member Relationship to Patient: Son Railways Assistant Name: Blayne Maki Delivery Method: HAND - Hand Delivered Helena Days: Prior Verbal Notification: Recipient Understood Notice: Yes Recipient Signature: Med Rec Note Co-signed by Attending: Coverage Notice Comment: ROMÁN for [facility] Last DP export: 09/12/18 10:05 a Patient Name: ZACH MAKI Page 82027 at 1116 All edits/amendments must be made on the electronic document DICTATION DATE: 09/12/18 1115 QUALITY TECHNICIAN FIBERGLASS: CONNOR 09/12/18 1115 RPT#: [id number] DC DATE: STATUS: ADM IN [facility] [address] [place] [address] END OF REPORT
[2018-09-12 14:37] VITALS: BP 150/69
--- NOTE | 2018-09-12 14:42 | MORECARE ---
CASE MANAGEMENT DISCHARGE SUMMARY PATIENT: ZACH MAKI UNIT: [id number] ADM DATE: 09/10/18 AGE: 88 : 32 SEX: M ROOM/BED: D.2232 AUTHOR: CARRINGTON,DOC PHYSICIAN: REFERRING PHYSICIAN: RADHA ELIZONDO MD DATE OF SERVICE: 09/12/18 Discharge Plan Patient Name: ZACH MAKI Facility: [facility]:[place] : 1930 Planned Disposition: Fci Facility Anticipated Discharge Date: Discharge Date: Expected LOS: Initial Reviewer: [email or web address] Initial Review Date: 09/12/2018 Generated: 09/12/18 3:42 pm Comments DCP- Discharge Planning Updated by [email or web address]: Saima Azar on 09/12/18 10:[address] Patient Name: ZACH MAKI Admission Status: ER Accout number: [id number] Admission Date: 09-10-2018 : 1930 Admission Diagnosis: Attending: CARO, Current LOS: 2 Anticipated DC Date: Planned Disposition: Fci Facility Primary Insurance: MEDICARE A & B Discharge Planning Comments: Met with patient yesterday, he was unable to answer any questions. I called his son (Blayne) and left a message to return my call. Blayne called and states that he had his father going to [facility] for usp and then was probably going to transition to a tank terminal gauger bed. When the ambulance came to take him there, they brought him to the hospital for acute illness. His son states that the plan is for him to go to [facility] when he is medically stable for discharge. I notified franky Bermudez for [facility], and clinical faxed. CM will continue to follow and assist with discharge planning/needs. Dragger: Saima Azar DCPIA - Discharge Planning Initial Assessment Updated by [email or web address]: Saima Azar on 09/12/18 11:05 am * Is the patient Alert and Oriented? No * PCP Dr. Alexis * Pharmacy [facility] on [address] * Preadmission Environment Home with Family * ADLs Total Dependent * Equipment Other Rolling Walker Tub Bench Wheelchair * Other Equipment Transfer bench * List name and contact numbers for known caregivers / representatives who currently or will assist patient after discharge: Blayne Maki - son - [phone] or [phone] * Verbal permission to speak to the caregivers and representatives has been obtained from the patient. N/A * Community resources currently utilized None * Additional services required to return to the preadmission environment? Yes * Can the patient safely return to the preadmission environment? No * Has this patient been hospitalized within the prior 30 days at any hospital? No External Providers External Provider: [facility] Next Contact Date: Service Request Date: Service Type: Resolution: Reviewer: Comments: Coverage Notice Reviewer: [email or web address] Bret Azar Notice Issued Date-Time: 09/11/2018 15:30 Notice Type: Patient Choice Letter Notice Delivered To: Family Member Relationship to Patient: Son Pension Adviser Name: Blayne Maki Delivery Method: HAND - Hand Delivered Helena Days: Prior Verbal Notification: Recipient Understood Notice: Yes Recipient Signature: Med Rec Note Co-signed by Attending: Coverage Notice Comment: ROMÁN for [facility] DP export: 09/12/18 10:16 a Patient Name: ZACH MAKI Page 27888 at 1442 All edits/amendments must be made on the electronic document DICTATION DATE: 09/12/181441 ARMATURE BALANCER: CONNOR 09/12/181441 RPT#: [id number] DC DATE: STATUS: ADM IN [facility] [address] [place] [address] END OF REPORT
[2018-09-12 18:03] VITALS: BP 134/64
--- NOTE | 2018-09-12 20:00 | NUR ---
RESTING IN BED, NO APPARENT DISTRESS, CONFUSED TO TIME AND PLACE, WILL NOT USE CALL LIGHT, COMNTINUSLY GETTING UP TO BEDSIDE TO URINATE, SEE SHIFT ASSESSMENT, CALL DANIELA POND INSTRUCTED TO CALL BEFORE GETTIGN UP, SIDE RAILS UP X 3, BHUPINDER MAT IN USE.
[2018-09-12 21:22] VITALS: BP 130/70
[2018-09-13 01:22] VITALS: BP 149/66
[2018-09-13 06:26] LABS: BASOPHILS 0.2 % (0-2); EOSINOPHILS 5.5 % (0-7); HEMATOCRIT 35.4 % (42.0-54.0); HEMOGLOBIN 11.7 g/dL (13.5-17.5); LYMPHOCYTES 33.3 % (15-50); MCH 30.5 pg (26.0-34.0); MCHC 33.1 g/dL (31.0-37.0); MCV 92.2 fL (80.0-100.0); MEAN PLATELET VOLUME 10.8 fL (7.4-10.4); MONOCYTES 12.2 % (2-11); NEUTROPHILS 48.8 % (40-80); PLATELET COUNT 198 10x3/uL (130-400); RBC 3.84 10x6/uL (4.20-6.10); RDW 13.9 % (11.5-14.5); WBC 4.5 10x3/uL (4.8-10.8)
[2018-09-13 07:17] LABS: ALBUMIN 2.7 g/dL (3.4-5.0); ALKALINE PHOSPHATASE 142 U/L (46-116); ALT (SGPT) 10 U/L (10-68); BILIRUBIN - TOTAL 0.17 mg/dL (0.2-1.3); CALC OSMOLALITY 283 mosm/kg (275-300); CALCIUM 9.3 mg/dL (8.5-10.1); CARBON DIOXIDE 26.1 mmol/L (21.0-32.0); CHLORIDE - SERUM 110 mmol/L (98-107); CREATININE - SERUM 0.6 mg/dL (0.6-1.3); GLUCOSE 86 mg/dL (74-106); POTASSIUM - SERUM 3.5 mmol/L (3.5-5.1); PROTEIN - SERUM 6.1 g/dL (6.4-8.2); SODIUM 144 mmol/L (136-145); UREA NITROGEN 7 mg/dL (7-18); eGFR NON AFRICAN AMERICAN > 90 mL/min (90-120)
[2018-09-13 08:47] VITALS: BP 153/69
[2018-09-13 12:41] VITALS: BP 107/67
[2018-09-13] MEDS ORDERED: TESSALON PERLE100 MG PO (12:49)
[2018-09-13] MEDS ORDERED: MUCINEX600 MG PO (12:49)
[2018-09-13] MEDS ORDERED: LEVOFLOXACIN500 MG PO (12:51)
--- NOTE | 2018-09-13 13:02 | MORECARE ---
CASE MANAGEMENT DISCHARGE SUMMARY PATIENT: ZACH MAKI UNIT: [id number] ADM DATE: 09/10/18 AGE: 88 : 32 SEX: M ROOM/BED: D.2232 AUTHOR: CALLIE SHULTZ PHYSICIAN: REFERRING PHYSICIAN: RADHA ELIZONDO MD DATE OF SERVICE: 09/13/18 Discharge Plan Patient Name: ZACH MAKI Facility: [facility]:[place] : 1930 Planned Disposition: Fdc Facility Anticipated Discharge Date: Discharge Date: Expected LOS: Initial Reviewer: [email or web address] Initial Review Date: 09/12/2018 Generated: 09/13/18 2:01 pm Comments DCP- Discharge Planning Updated by [email or web address]: Pura Moraes on 09/13/18 11:[address] Patient Name: ZACH MAKI Admission Status: ER Accout number: [id number] Admission Date: 09-10-2018 : 1930 Admission Diagnosis:PNEUMONIA, UNSPECIFIED ORGANISM Attending: CARO, Current LOS: 3 Anticipated DC Date: Planned Disposition: Fdc Facility Primary Insurance: MEDICARE A & B Discharge Planning Comments: CM SPOKE WITH THE [facility] AT [phone] AND THEY CAN ACCEPT PATIENT TODAY. NURSE TO CALL REPORT TO [phone]. CM TO FOLLOW AND ASSIST NEEDED WITH DC PLANNING/NEEDS. Nut Feeder: Pura Moraes DCP- Discharge Planning Updated by [email or web address]: Saima Azar on 09/12/18 1:[address] Spoke with franky Bermudez for [facility]. She states they can accept patient tomorrow. Updated clinical faxed and Kylah Abraham notified. CM will continue to follow and assist with discharge planning/needs. DCP- Discharge Planning Updated by [email or web address]: Saima Azar on 09/12/18 10:[address] Patient Name: ZACH MAKI Admission Status: ER Accout number: [id number] Admission Date: 09-10-2018 : 1930 Admission Diagnosis: Attending: CARO, Current LOS: 2 Anticipated DC Date: Planned Disposition: Fdc Facility Primary Insurance: MEDICARE A & B Discharge Planning Comments: Met with patient yesterday, he was unable to answer any questions. I called his son (Blayne) and left a message to return my call. Blayne called and states that he had his father going to [facility] for jail and then was probably going to transition to a termite control service representative bed. When the ambulance came to take him there, they brought him to the hospital for acute illness. His son states that the plan is for him to go to [facility] when he is medically stable for discharge. I notified franky Bermudez for [facility], and clinical faxed. CM will continue to follow and assist with discharge planning/needs. Nut Feeder: Saima Azar DCPIA - Discharge Planning Initial Assessment Updated by [email or web address]: Saima Azar on 09/12/18 11:05 am * Is the patient Alert and Oriented? No * PCP Dr. Alexis * Pharmacy [facility] on [address] * Preadmission Environment Home with Family * ADLs Total Dependent * Equipment Other Rolling Walker Tub Bench Wheelchair * Other Equipment Transfer bench * List name and contact numbers for known caregivers / representatives who currently or will assist patient after discharge: Blayne Maki - son - [phone] or * Verbal permission to speak to the caregivers and representatives has been obtained from the patient. N/A * Community resources currently utilized None * Additional services required to return to the preadmission environment? Yes * Can the patient safely return to the preadmission environment? No * Has this patient been hospitalized within the prior 30 days at any hospital? No Coverage Notice Reviewer: [email or web address] - Saima Azar Notice Issued Date-Time: 09/11/2018 15:30 Notice Type: Patient Choice Letter Notice Delivered To: Family Member Relationship to Patient: Son Certified Cytotechnologist Name: Blayne Maki Delivery Method: HAND - Hand Delivered Helena Days: Prior Verbal Notification: Recipient Understood Notice: Yes Recipient Signature: Med Rec Note Co-signed by Attending: Coverage Notice Comment: ROMÁN for [facility] Last DP export: 09/12/18 1:42 p Patient Name: ZACH MAKI Page 60201 at 1302 All edits/amendments must be made on the electronic document DICTATION DATE: 09/13/18 1301 SPORTS PSYCHOLOGIST: DM 09/13/18 1301 RPT#: [id number] DC DATE: STATUS: ADM IN [facility] [address] [place] [address] END OF REPORT
--- NOTE | 2018-09-13 13:23 | MORECARE ---
CASE MANAGEMENT DISCHARGE SUMMARY PATIENT: ZACH MAKI UNIT: [id number] ADM DATE: 09/10/18 AGE: 88 : 32 SEX: M ROOM/BED: D.2232 AUTHOR: CARRINGTONDOC PHYSICIAN: REFERRING PHYSICIAN: RADHA ELIZONDO MD DATE OF SERVICE: 09/13/18 Discharge Plan Patient Name: ZACH MAKI Facility: [facility]:[place] : 1930 Planned Disposition: Correction Facility Anticipated Discharge Date: 09/13/18 Discharge Date: Expected LOS: 3 Initial Reviewer: [email or web address] Initial Review Date: 09/12/2018 Generated: 09/13/18 2:23 pm Comments DCP- Discharge Planning Updated by [id number]: Pura Moraes on 09/13/18 12:[address] Patient Name: ZACH MAKI Admission Status: ER Accout number: [id number] Admission Date: 09-10-2018 : 1930 Admission Diagnosis:PNEUMONIA, UNSPECIFIED ORGANISM Attending: CARO, Current LOS: 3 Anticipated DC Date: Planned Disposition: Correction Facility Primary Insurance: MEDICARE A & B Discharge Planning Comments: CM SPOKE WITH THE [facility] AT [phone] AND THEY CAN ACCEPT PATIENT TODAY. NURSE TO CALL REPORT TO [phone]. CM TO FOLLOW AND ASSIST NEEDED WITH DC PLANNING/NEEDS. Water Control Supervisor: Pura Moraes Appended by Pura Moraes on 09/13/2018 13:23 CDT: CM SPOKE WITH THE [facility] AND THEY WILL HOSIERY OPERATOR PATIENT AT 3PM TODAY. NURSE NOTIFIED. CM ATTEMPTED TO CALL PATIENT SON TO NOTIFY HIM HIS DAD WAS GOING TO [facility] TODAY, NO ANSWER. DCP- Discharge Planning Updated by [email or web address]: Saima Azar on 09/12/18 1:[address] Spoke with franky Bermudez for The [facility]. She states they can accept patient tomorrow. Updated clinical faxed and Kylah Abraham notified. CM will continue to follow and assist with discharge planning/needs. DCP- Discharge Planning Updated by [email or web address]: Saima Azar on 09/12/18 10:[address] Patient Name: ZACH MAKI Admission Status: ER Accout number: [id number] Admission Date: 09-10-2018 : 1930 Admission Diagnosis: Attending: CARO, Current LOS: 2 Anticipated DC Date: Planned Disposition: Correction Facility Primary Insurance: MEDICARE A & B Discharge Planning Comments: Met with patient yesterday, he was unable to answer any questions. I called his son (Blayne) and left a message to return my call. Blayne called and states that he had his father going to [facility] for detention and then was probably going to transition to a cutter operator brick bed. When the ambulance came to take him there, they brought him to the hospital for acute illness. His son states that the plan is for him to go to [facility] when he is medically stable for discharge. I notified franky Bermudez for [facility], and clinical faxed. CM will continue to follow and assist with discharge planning/needs. Water Control Supervisor: Saima Azar DCPIA - Discharge Planning Initial Assessment Updated by [email or web address]: Saima Azar on 09/12/18 11:05 am * Is the patient Alert and Oriented? No * PCP Dr. Alexis * Pharmacy [facility] on [address] * Preadmission Environment Home with Family * ADLs Total Dependent * Equipment Other Rolling Walker Tub Bench Wheelchair * Other Equipment Transfer bench * List name and contact numbers for known caregivers / representatives who currently or will assist patient after discharge: Blayne Maki - son - [phone] or * Verbal permission to speak to the caregivers and representatives has been obtained from the patient. N/A * Community resources currently utilized None * Additional services required to return to the preadmission environment? Yes * Can the patient safely return to the preadmission environment? No * Has this patient been hospitalized within the prior 30 days at any hospital? No Coverage Notice Reviewer: [id number] - Saima Azar Notice Issued Date-Time: 09/11/2018 15:30 Notice Type: Patient Choice Letter Notice Delivered To: Family Member Relationship to Patient: Son Senior Insight Manager International Name: Blayne Maki Delivery Method: HAND - Hand Delivered Helena Days: Prior Verbal Notification: Recipient Understood Notice: Yes Recipient Signature: Med Rec Note Co-signed by Attending: Coverage Notice Comment: ROMÁN for [facility] Reviewer: [id number] Bret Moraes Notice Issued Date-Time: 09/13/2018 13:23 Notice Type: IM Discharge Notice Notice Delivered To: Patient Relationship to Patient: Self Senior Insight Manager International Name: Delivery Method: - Helena Days: Prior Verbal Notification: Recipient Understood Notice: Recipient Signature: Med Rec Note Co-signed by Attending: Coverage Notice Comment: Last DP export: 09/13/18 12:01 p Patient Name: ZACH MAKI Page [id number] at 1323 All edits/amendments must be made on the electronic document DICTATION DATE: 09/13/18 1323 PHARMACOGNOSIST: CONNOR 09/13/18 1323 RPT#: [id number] DC DATE: STATUS: ADM IN [facility] [address] [place] [address] END OF REPORT
--- NOTE | 2018-09-13 14:05 | NUR ---
PT BEING DC TO [facility], SPOKE TO PT SON AND ADVISED OF DC. ALL QUESTIONS ANSWERED, NO OTHER NEEDS VOICED
--- NOTE | 2018-09-13 15:36 | NUR ---
CALLED REPORT TO THE [facility], ALL QUESTIONS ANSWERED PT PICKED UP AT 1520
--- NOTE | 2018-09-13 15:57 | MORECARE ---
CASE MANAGEMENT DISCHARGE SUMMARY PATIENT: ZACH MAKI UNIT: [id number] ADM DATE: 09/10/18 AGE: 88 : 32 SEX: M ROOM/BED: D.2232 AUTHOR: CARRINGTONDOC PHYSICIAN: REFERRING PHYSICIAN: RADHA ELIZONDO MD DATE OF SERVICE: 09/13/18 Discharge Plan Patient Name: ZACH MAKI Facility: [facility]:[place] : 1930 Planned Disposition: Fdc Facility Anticipated Discharge Date: 09/13/18 Discharge Date: 09/13/2018 Expected LOS: 3 Initial Reviewer: [id number] Initial Review Date: 09/12/2018 Generated: 09/13/18 4:57 pm Comments DCP- Discharge Planning Updated by [id number]: Pura Moraes on 09/13/18 12:[address] Patient Name: ZACH MAKI Admission Status: ER Accout number: [id number] Admission Date: 09-10-2018 : 1930 Admission Diagnosis:PNEUMONIA, UNSPECIFIED ORGANISM Attending: CARO, Current LOS: 3 Anticipated DC Date: Planned Disposition: Fdc Facility Primary Insurance: MEDICARE A & B Discharge Planning Comments: CM SPOKE WITH THE [facility] AT [phone] AND THEY CAN ACCEPT PATIENT TODAY. NURSE TO CALL REPORT TO [phone]. CM TO FOLLOW AND ASSIST NEEDED WITH DC PLANNING/NEEDS. Graphics Editor: Pura Moraes Appended by Pura Moraes on 09/13/2018 13:23 CDT: CM SPOKE WITH THE [facility] AND THEY WILL SUPERVISOR DENTURE DEPARTMENT PATIENT AT 3PM TODAY. NURSE NOTIFIED. CM ATTEMPTED TO CALL PATIENT SON TO NOTIFY HIM HIS DAD WAS GOING TO [facility] TODAY, NO ANSWER. DCP- Discharge Planning Updated by [id number]: Saima Azar on 09/12/18 1:[address] Spoke with franky Bermudez for The [facility] She states they can accept patient tomorrow. Updated clinical faxed and Kylah Abraham notified. CM will continue to follow and assist with discharge planning/needs. DCP- Discharge Planning Updated by [email or web address]: Saima Azar on 09/12/18 10:[address] Patient Name: ZACH MAKI Admission Status: ER Accout number: [id number] Admission Date: 09-10-2018 : 1930 Admission Diagnosis: Attending: CARO, Current LOS: 2 Anticipated DC Date: Planned Disposition: Fdc Facility Primary Insurance: MEDICARE A & B Discharge Planning Comments: Met with patient yesterday, he was unable to answer any questions. I called his son (Blayne) and left a message to return my call. Blayne called and states that he had his father going to [facility] for custodial and then was probably going to transition to a senior writer bed. When the ambulance came to take him there, they brought him to the hospital for acute illness. His son states that the plan is for him to go to [facility] when he is medically stable for discharge. I notified franky Bermudez for [facility], and clinical faxed. CM will continue to follow and assist with discharge planning/needs. Graphics Editor: Saima Azar DCPIA - Discharge Planning Initial Assessment Updated by [email or web address]: Saima Azar on 09/12/18 11:05 am * Is the patient Alert and Oriented? No * PCP Dr. Alexis * Pharmacy [facility] on [address] * Preadmission Environment Home with Family * ADLs Total Dependent * Equipment Other Rolling Walker Tub Bench Wheelchair * Other Equipment Transfer bench * List name and contact numbers for known caregivers / representatives who currently or will assist patient after discharge: Blayne Maki - son - [phone] or * Verbal permission to speak to the caregivers and representatives has been obtained from the patient. N/A * Community resources currently utilized None * Additional services required to return to the preadmission environment? Yes * Can the patient safely return to the preadmission environment? No * Has this patient been hospitalized within the prior 30 days at any hospital? No Coverage Notice Reviewer: [id number] Bret Azar Notice Issued Date-Time: 09/11/2018 15:30 Notice Type: Patient Choice Letter Notice Delivered To: Family Member Relationship to Patient: Son Drilling Contractor Name: Blayne Maki Delivery Method: HAND - Hand Delivered Helena Days: Prior Verbal Notification: Recipient Understood Notice: Yes Recipient Signature: Med Rec Note Co-signed by Attending: Coverage Notice Comment: ROMÁN for [facility] Reviewer: [id number] Bret Moraes Notice Issued Date-Time: 09/13/2018 13:23 Notice Type: IM Discharge Notice Notice Delivered To: Patient Relationship to Patient: Self Drilling Contractor Name: Delivery Method: HAND - Hand Delivered Helena Days: Prior Verbal Notification: Recipient Understood Notice: Recipient Signature: Med Rec Note Co-signed by Attending: Coverage Notice Comment: PATIENT CONFUSED, UNABLE TO SIGN, COPY SENT TO SNF WITH PATIENT. ATTEPMTED TO CONTACT SON BUT NO ANSWER. Last DP export: 09/13/18 12:23 p Patient Name: ZACH MAKI Page [id number] at 1557 All edits/amendments must be made on the electronic document DICTATION DATE: 09/13/181556 LIVE GAMES DEALER: CONNOR 09/13/181556 RPT#: [id number] DC DATE:09/13/18 STATUS: DIS IN [facility] [address] [place] [address] END OF REPORT
[2018-09-14] MEDS ORDERED: PENICILLIN V P500 MG PO (11:59)
--- NOTE | 2018-09-15 10:48 | MORECARE ---
CASE MANAGEMENT DISCHARGE SUMMARY PATIENT: ZACH MAKI UNIT: [id number] ADM DATE: 09/10/18 AGE: 88 : 32 SEX: M ROOM/BED: D.2232 AUTHOR: CARRINGTONDOC PHYSICIAN: REFERRING PHYSICIAN: RADHA ELIZONDO MD DATE OF SERVICE: 09/15/18 Discharge Plan Patient Name: ZACH MAKI Facility: [facility]:[place] : 1930 Planned Disposition: Senior Living Facility Anticipated Discharge Date: 09/13/18 Discharge Date: 09/13/2018 Expected LOS: 3 Initial Reviewer: [email or web address] Initial Review Date: 09/12/2018 Generated: 09/15/18 11:48 am Comments DCP- Discharge Planning Updated by [email or web address]: Pura Moraes on 09/13/18 12:[address] Patient Name: ZACH MAKI Admission Status: ER Accout number: [id number] Admission Date: 09-10-2018 : 1930 Admission Diagnosis:PNEUMONIA, UNSPECIFIED ORGANISM Attending: CARO, Current LOS: 3 Anticipated DC Date: Planned Disposition: Senior Living Facility Primary Insurance: MEDICARE A & B Discharge Planning Comments: CM SPOKE WITH THE [facility] AT [phone] AND THEY CAN ACCEPT PATIENT TODAY. NURSE TO CALL REPORT TO [phone]. CM TO FOLLOW AND ASSIST NEEDED WITH DC PLANNING/NEEDS. Lawyer Real Estate: Pura Moraes Appended by Pura Moraes on 09/13/2018 13:23 CDT: CM SPOKE WITH THE [facility] AND THEY WILL STATION INSPECTOR PATIENT AT 3PM TODAY. NURSE NOTIFIED. CM ATTEMPTED TO CALL PATIENT SON TO NOTIFY HIM HIS DAD WAS GOING TO [facility] TODAY, NO ANSWER. DCP- Discharge Planning Updated by [email or web address]: Saima Azar on 09/12/18 1:[address] Spoke with franky Bermudez for The [facility]. She states they can accept patient tomorrow. Updated clinical faxed and Kylah Abraham notified. CM will continue to follow and assist with discharge planning/needs. DCP- Discharge Planning Updated by [id number]: Saima Azar on 09/12/18 10:[address] Patient Name: ZACH MAKI Admission Status: ER Accout number: [id number] Admission Date: 09-10-2018 : 1930 Admission Diagnosis: Attending: CARO, Current LOS: 2 Anticipated DC Date: Planned Disposition: Senior Living Facility Primary Insurance: MEDICARE A & B Discharge Planning Comments: Met with patient yesterday, he was unable to answer any questions. I called his son (Blayne) and left a message to return my call. Blayne called and states that he had his father going to [facility] for senior living and then was probably going to transition to a long-term bed. When the ambulance came to take him there, they brought him to the hospital for acute illness. His son states that the plan is for him to go to [facility] when he is medically stable for discharge. I notified franky Bermudez for [facility], and clinical faxed. CM will continue to follow and assist with discharge planning/needs. Lawyer Real Estate: Saima Azar DCPIA - Discharge Planning Initial Assessment Updated by [id number]: Saima Azar on 09/12/18 11:05 am * Is the patient Alert and Oriented? No * PCP Dr. Alexis * Pharmacy [facility] on [address] * Preadmission Environment Home with Family * ADLs Total Dependent * Equipment Other Rolling Walker Tub Bench Wheelchair * Other Equipment Transfer bench * List name and contact numbers for known caregivers / representatives who currently or will assist patient after discharge: Blayne Maki - son - [phone] or * Verbal permission to speak to the caregivers and representatives has been obtained from the patient. N/A * Community resources currently utilized None * Additional services required to return to the preadmission environment? Yes * Can the patient safely return to the preadmission environment? No * Has this patient been hospitalized within the prior 30 days at any hospital? No External Providers External Provider: [facility] Next Contact Date: Service Request Date: Service Type: Resolution: Reviewer: Comments: Coverage Notice Reviewer: [id number] - Saima Azar Notice Issued Date-Time: 09/11/2018 15:30 Notice Type: Patient Choice Letter Notice Delivered To: Family Member Relationship to Patient: Son Brewery Pumper Name: Blayne Maki Delivery Method: HAND - Hand Delivered Helena Days: Prior Verbal Notification: Recipient Understood Notice: Yes Recipient Signature: Med Rec Note Co-signed by Attending: Coverage Notice Comment: ROMÁN for [facility] Reviewer: [id number] Bret Moraes Notice Issued Date-Time: 09/13/2018 13:23 Notice Type: IM Discharge Notice Notice Delivered To: Patient Relationship to Patient: Self Brewery Pumper Name: Delivery Method: HAND - Hand Delivered Helena Days: Prior Verbal Notification: Recipient Understood Notice: Recipient Signature: Med Rec Note Co-signed by Attending: Coverage Notice Comment: PATIENT CONFUSED, UNABLE TO SIGN, COPY SENT TO SNF WITH PATIENT. ATTEPMTED TO CONTACT SON BUT NO ANSWER. Last DP export: 09/13/18 2:57 p Patient Name: ZACH MAKI Page [id number] at 1048 All edits/amendments must be made on the electronic document DICTATION DATE: 09/15/187 CRUSHER SCREEN REPAIRER: CONNOR 09/15/18 1047 RPT#: [id number] DC DATE:09/13/18 STATUS: DIS IN [facility] [address] [place] [address] END OF REPORT
== END 2018-09-13 15:37 | DRG 193 ==
LOC: D.ER 12:45 → D.MS 14:53
PROVIDERS: Family Medicine; ADMIT Family Medicine; ATTEND Family Medicine
DX: J18.9 Pneumonia, unspecified organism (principal); R40.2212 Coma scale, best verbal response, none, at arrival to emergency department; G93.41 Metabolic encephalopathy; E44.0 Moderate protein-calorie malnutrition; G72.81 Critical illness myopathy; E86.0 Dehydration; G20 Parkinson's disease

== ENCOUNTER 2018-10-07 06:06 | Emergency (ER) | payer MEDICARE, OTHER ==
[~2018-10-07] VITALS: Ht 172.7 cm; Wt 68.2 kg
[~2018-10-07 06:06] MED LIST changes: +LEVOFLOXACIN500 MG PO; +MUCINEX600 MG PO; +PENICILLIN V P500 MG PO; +TESSALON PERLE100 MG PO
[2018-10-07 06:08] VITALS: Ht 172.7 cm; Wt 68.2 kg
[2018-10-07] MEDS ORDERED: MYSOLINE250 MG PO (06:09)
[2018-10-07] MEDS ORDERED: REMERON15 MG PO (06:10)
[2018-10-07 08:25] VITALS: BP 122/64
== END 2018-10-07 09:03 | disposition home or self-care (01) ==
LOC: D.ER 06:06
DX: S06.6X9A Traumatic subarachnoid hemorrhage with loss of consciousness of unspecified duration, initial encounter (principal); W18.30XA Fall on same level, unspecified, initial encounter; Y93.89 Activity, other specified; Y92.129 Unspecified place in nursing home as the place of occurrence of the external cause; F03.90 Unspecified dementia, unspecified severity, without behavioral disturbance, psychotic disturbance, mood disturbance, and anxiety

== ENCOUNTER 2018-10-14 02:37 | Emergency (ER) | payer MEDICARE, OTHER ==
[~2018-10-14] VITALS: Ht 172.7 cm; Wt 81.8 kg
[~2018-10-14 02:37] MED LIST changes: +REMERON15 MG PO
[2018-10-14 02:41] VITALS: Ht 172.7 cm; Wt 81.8 kg
[2018-10-14 04:13] VITALS: BP 112/58
== END 2018-10-14 04:14 ==
LOC: D.ER 02:37
DX: F03.90 Unspecified dementia, unspecified severity, without behavioral disturbance, psychotic disturbance, mood disturbance, and anxiety (principal); W19.XXXA Unspecified fall, initial encounter; K21.9 Gastro-esophageal reflux disease without esophagitis; I10 Essential (primary) hypertension

== ENCOUNTER 2018-10-15 02:07 | Emergency (ER) | payer MEDICARE, OTHER ==
[~2018-10-15] VITALS: Ht 172.7 cm; Wt 72.7 kg
[2018-10-15 02:09] VITALS: Ht 172.7 cm; Wt 72.7 kg
[2018-10-15 03:08] LABS: BASOPHILS 0.2 % (0-2); EOSINOPHILS 4.8 % (0-7); HEMOGLOBIN 11.8 g/dL (13.5-17.5); IMMATURE GRANULOCYTES 0.2 % (0-5); LYMPHOCYTES 23.9 % (15-50); MCH 30.3 pg (26.0-34.0); MCHC 32.8 g/dL (31.0-37.0); MCV 92.5 fL (80.0-100.0); MEAN PLATELET VOLUME 9.9 fL (7.4-10.4); MONOCYTES 9.9 % (2-11); PLATELET COUNT 234 10x3/uL (130-400); RBC 3.89 10x6/uL (4.20-6.10); RDW 14.7 % (11.5-14.5); WBC 5.4 10x3/uL (4.8-10.8)
[2018-10-15 03:17] LABS: ALBUMIN 2.7 g/dL (3.4-5.0); ALKALINE PHOSPHATASE 120 U/L (46-116); ALT (SGPT) 16 U/L (10-68); BILIRUBIN - TOTAL 0.14 mg/dL (0.2-1.3); CALC OSMOLALITY 282 mosm/kg (275-300); CALCIUM 9.1 mg/dL (8.5-10.1); CARBON DIOXIDE 29.4 mmol/L (21.0-32.0); CHLORIDE - SERUM 108 mmol/L (98-107); CREATININE - SERUM 0.9 mg/dL (0.6-1.3); GLUCOSE 95 mg/dL (74-106); POTASSIUM - SERUM 4.4 mmol/L (3.5-5.1); PROTEIN - SERUM 6.5 g/dL (6.4-8.2); SODIUM 141 mmol/L (136-145); UREA NITROGEN 18 mg/dL (7-18); eGFR NON AFRICAN AMERICAN 85 mL/min (90-120)
[2018-10-15 03:28] LABS: CKMB 1.3 U/L (0.0-3.6); CREATINE KINASE 46 UL (21-232); TROPONIN-I 0.018 ng/mL (0.000-0.060)
[2018-10-15 05:10] LABS: APPEARANCE CLEAR (CLEAR); BILIRUBIN NEGATIVE (NEGATIVE); COLOR YELLOW (YELLOW); GLUCOSE NEGATIVE (NEGATIVE); KETONE NEGATIVE (NEGATIVE); NITRITE NEGATIVE (NEGATIVE); PROTEIN NEGATIVE (NEGATIVE); UROBILINOGEN NORMAL (NORMAL)
[2018-10-15 05:11] LABS: BACTERIA FEW /hpf (NONE SEEN); EPITHELIAL CELLS 0-5 /hpf (0-5); RED CELLS - URINE 0-5 /hpf (0-5); WHITE CELLS - URINE 0-5 /hpf (0-5)
[2018-10-15 05:29] VITALS: BP 123/65
== END 2018-10-15 05:59 ==
LOC: D.ER 02:07
PROVIDERS: Family Medicine
DX: M54.9 Dorsalgia, unspecified (principal); W19.XXXA Unspecified fall, initial encounter; G20 Parkinson's disease; F02.80 Dementia in other diseases classified elsewhere, unspecified severity, without behavioral disturbance, psychotic disturbance, mood disturbance, and anxiety; I10 Essential (primary) hypertension; M81.0 Age-related osteoporosis without current pathological fracture

== ENCOUNTER 2018-10-27 23:18 | Emergency (ER) | payer MEDICARE, OTHER ==
[~2018-10-27] VITALS: Ht 172.7 cm; Wt 72.7 kg
[2018-10-27 23:20] VITALS: Ht 172.7 cm; Wt 72.7 kg
[2018-10-28 00:36] VITALS: BP 132/78
== END 2018-10-28 00:37 | disposition home or self-care (01) ==
LOC: D.ER 23:18
DX: S50.01XA Contusion of right elbow, initial encounter (principal); S51.011A Laceration without foreign body of right elbow, initial encounter; W19.XXXA Unspecified fall, initial encounter; I10 Essential (primary) hypertension; G20 Parkinson's disease; F02.80 Dementia in other diseases classified elsewhere, unspecified severity, without behavioral disturbance, psychotic disturbance, mood disturbance, and anxiety

== ENCOUNTER → 2018-11-13 12:46 | Outpatient (CLI) | payer MEDICARE, OTHER ==
[2018-10-27 23:20] VITALS: BMI 24.3
== END | disposition home or self-care (01) ==
LOC: D.MRI 12:46
PROVIDERS: ATTEND Legal Medicine
DX: M48.56XA Collapsed vertebra, not elsewhere classified, lumbar region, initial encounter for fracture (principal)

== ENCOUNTER 2019-11-04 08:39 | Emergency (ER) | payer MEDICARE, OTHER ==
[~2019-11-04] VITALS: Ht 172.7 cm; Wt 86.4 kg
[2019-11-04 08:51] VITALS: Ht 172.7 cm; Wt 86.4 kg
[2019-11-04 11:48] VITALS: BP 102/50
== END 2019-11-04 11:45 ==
LOC: D.ER 08:39
DX: S32.599A Other specified fracture of unspecified pubis, initial encounter for closed fracture (principal); F03.90 Unspecified dementia, unspecified severity, without behavioral disturbance, psychotic disturbance, mood disturbance, and anxiety; E07.9 Disorder of thyroid, unspecified; I10 Essential (primary) hypertension; K21.9 Gastro-esophageal reflux disease without esophagitis; G20 Parkinson's disease; M25.552 Pain in left hip; W19.XXXA Unspecified fall, initial encounter; Y93.9 Activity, unspecified; Y92.9 Unspecified place or not applicable